=== PATIENT | male | born 1960 ===

== ENCOUNTER → 2019-12-11 | Outpatient (CLI) | payer OTHER | LOC: ZCOL.LAB 16:31 | DX: Z20.828 Contact with and (suspected) exposure to other viral communicable diseases (principal) ==

== ENCOUNTER 2020-12-16 20:58 | Inpatient (IN) | payer OTHER ==
[~2020-12-16] VITALS: Ht 175.3 cm; Wt 104.5 kg
[2020-12-16 21:36] LABS: HEMATOCRIT 43.5 % (42.0-52.0); HEMOGLOBIN 14.8 g/dl (13.5-18.0); MEAN CELL VOLUME 93 fl (80.0-100.0); MEAN CORPUSCULAR HEMOGLOBIN 32 pg (27.0-31.0); MEAN CORPUSCULAR HGB CONC 34 g/dl (33.0-37.0); MEAN PLATELET VOLUME 10.5 fl (7.4-10.4); PLATELET COUNT 294 K/mm3 (130-400); RED BLOOD COUNT 4.66 M/mm3 (4.20-5.60); REDCELL DISTRIBUTION WIDTH-CV 12.7 % (11.5-14.5)
[2020-12-16 21:45] LABS: ARTERIAL BLD GAS O2 SATURATION 89.1 % (92-100); ARTERIAL BLD GAS TCO2 CT 21.9; ARTERIAL BLOOD GAS BASE EXCESS -0.6 (-2-2); ARTERIAL BLOOD GAS PCO2 27.9 mmHg (35-45); ARTERIAL BLOOD GAS PO2 54.3 mmHg (80-100)
[2020-12-16 21:47] LABS: ALANINE AMINOTRANSFERASE 100 U/L (4-49); ALBUMIN 4.2 gm/dL (3.5-5.0); ALKALINE PHOSPHATASE 70 U/L (50-136); ANION GAP 11 mmol/L (7-16); AST,SGOT 128 U/L (15-37); BILIRUBIN,TOTAL 1.4 mg/dL (0.0-1.0); BLOOD UREA NITROGEN 24 mg/dL (9-20); CALCIUM 8.9 mg/dL (8.4-10.2); CARBON DIOXIDE 25 mmol/L (22-30); CHLORIDE 96 mmol/L (98-107); CREATININE, serum 1.08 (0.66-1.25); GLUCOSE 136 mg/dL (74-106); LIPASE 82 U/L (23-300); POTASSIUM 4.1 mmol/L (3.4-5.0); SODIUM 132 mmol/L (137-145); TOTAL PROTEIN 8.3 gm/dL (6.4-8.2)
[2020-12-16 22:09] LABS: INR 1.4 (0.8-3.0); PROTHROMBIN TIME 15.3 SECONDS (9.7-12.8)
[2020-12-16 22:19] LABS: TROPONIN-I < 0.012 ng/mL (0.000-0.035)
[2020-12-16 22:30] LABS: C-REACTIVE PROTEIN 17.6 mg/dL (0.0-0.9)
[2020-12-16 22:34] LABS: BAND 7 % (0-10); BASOPHIL 1 % (0-2); LYMPHOCYTE 5 % (20.0-51.0); NEUTROPHILS 80 % (42.0-75.2); PLATELET ESTIMATE NORMAL (NORMAL)
[2020-12-17] VITALS (470 sets, daily range): BP systolic 123–152; BP diastolic 83–99; PULSE 74–90; TEMP 96.9–98.4; O2SAT 66–98
--- NOTE | 2020-12-17 00:50 | NUR ---
Received report from ED nurseConcepcion.
[2020-12-17] MEDS ORDERED: ZYLOPRIM 300MG300 MG PO (01:22)
--- NOTE | 2020-12-17 01:36 | NUR ---
Patient arrives to ICU room 3 via ED stretcher. Patient arrives on BiPap, receiving 22/18 on 100% FiO2, tolerating well with sats low 90s. He is able to ambulate with standby assistance to ICU bed, however, he becomes labored with the activity. Respirations are otherwise unlabored although tachypneic when laying quietly in bed resting. He is alert and oriented. All initial vitals within normal limits. He arrives with two 20G peripheral IVs, one in the right AC, the other in the left hand. Both are saline locked. Patient voids in urinal, yielding 300mL of sharon, cloudy urine. A sample is sent to lab per hospitalist, Yamila, who is at bedside at time of patient's arrival. No skin issues noted. Patient is provided with call light, bed in lowest position. All alarms on. No further needs noted.
--- NOTE | 2020-12-17 01:45 | NUR ---
Patient's belongings include street clothes, a cell phone and glass engraver; a set of keys, and a wallet with $64 arevalo. Patient denies having glasses, hearing aids, dentures, or removable jewelry. He refuses use of hospital safe when offered. Belongings placed at bedside or in patient closet per his request.
[2020-12-17 02:26] LABS: COLLECTION METHOD CLEAN CATCH
[2020-12-17 02:37] LABS: MUCOUS Present /lpf; PH 5 (5-8); SQUAMOUS EPITHELIAL 0-2 /hpf; URINE APPEARANCE Hazy; URINE BACTERIA Rare /hpf; URINE BILIRUBIN Negative (NEGATIVE); URINE BLOOD 1+ (NEGATIVE); URINE COLOR Amber; URINE GLUCOSE Negative (NEGATIVE); URINE KETONE Negative (NEGATIVE); URINE LEUKOCYTE ESTERASE Negative (NEGATIVE); URINE NITRATE Negative (NEGATIVE); URINE PROTEIN(semi-quant) 1+ (NEGATIVE); URINE UROBILINOGEN >=4.0 mg/dL (NEGATIVE)
[2020-12-17 06:22] LABS: ARTERIAL BLD GAS O2 SATURATION 88.8 % (92-100); ARTERIAL BLD GAS TCO2 CT 23.4; ARTERIAL BLOOD GAS HCO3 22.4 meq/L (22-26); ARTERIAL BLOOD GAS PCO2 33.6 mmHg (35-45); ARTERIAL BLOOD GAS PO2 56.1 mmHg (80-100); ARTERIAL BLOOD GAS pH 7.44 (7.35-7.45)
--- NOTE | 2020-12-17 07:34 | NUR ---
Report given to EMELY Urban.
[2020-12-17 07:54] LABS: HEMATOCRIT 40.9 % (42.0-52.0); HEMOGLOBIN 13.7 g/dl (13.5-18.0); MEAN CELL VOLUME 93 fl (80.0-100.0); MEAN CORPUSCULAR HEMOGLOBIN 31 pg (27.0-31.0); MEAN CORPUSCULAR HGB CONC 34 g/dl (33.0-37.0); MEAN PLATELET VOLUME 10.2 fl (7.4-10.4); PLATELET COUNT 249 K/mm3 (130-400); RED BLOOD COUNT 4.39 M/mm3 (4.20-5.60); REDCELL DISTRIBUTION WIDTH-CV 12.6 % (11.5-14.5)
[2020-12-17 08:06] LABS: ALBUMIN 3.7 gm/dL (3.5-5.0); BILIRUBIN UNCONJUGATED 0.4 mg/dL (0.0-1.1); BILIRUBIN,DIRECT 0.4 mg/dL (0.0-0.4); BILIRUBIN,TOTAL 0.8 mg/dL (0.0-1.0); CALCIUM 8.4 mg/dL (8.4-10.2); CREATININE, serum 0.83 (0.66-1.25); POTASSIUM 4.1 mmol/L (3.4-5.0); TOTAL PROTEIN 7.6 gm/dL (6.4-8.2)
[2020-12-17 08:17] LABS: MAGNESIUM 2.4 mg/dL (1.6-2.3)
[2020-12-17 08:54] LABS: BAND 4 % (0-10); LYMPHOCYTE 6 % (20.0-51.0); MYELOCYTE 2 % (0-0); NEUTROPHILS 85 % (42.0-75.2); PLATELET ESTIMATE NORMAL (NORMAL)
--- NOTE | 2020-12-17 13:31 | NUR ---
DPOE filled out with patient, copy to patient and on chart. Patient designated his son Basim Overton #[phone]
--- NOTE | 2020-12-17 19:13 | NUR ---
PT report given to EMELY Smith.
--- NOTE | 2020-12-17 19:15 | NUR ---
Received report from EMELY Urban.
--- NOTE | 2020-12-17 21:45 | NUR ---
Patient resting quietly in bed. Continues to wear BiPap at 22/18 receiving 100% FiO2, tolerating well. Patient is tachypneic although he is unlabored while wearing BiPap mask. If mask removed, however, patient quickly becomes short of breath and distressed, desatting to 70s. Patient recovers well once mask is replaced. Patient experiences severe coughing episode while this RN at beside. Patient's saturation high 70s to low 80s; patient states it is difficult for him to catch his breath. Again, patient recovers well once coughing subsides. Saturations low 90s. All other vitals within normal limits. Patient denies any pain or discomfort. Yamila hospitalist, notified.
[2020-12-18] VITALS (554 sets, daily range): BP systolic 107–140; BP diastolic 70–91; PULSE 72–93; TEMP 96.6–99.2; O2SAT 69–100
--- NOTE | 2020-12-18 00:23 | NUR ---
While this RN assisting other patients, patient was intubated by Minor Gonzalez CRNA, with assistance of Guillermina, sugar house supervisor, and RTs, Eladia. Patient tolerated intubation well. Currently receiving fentanyl and propofol for sedation. An 18Fr OG placed, as well as a 16Fr aguilera catheter. Yamila hospitalist, at bedside.
--- NOTE | 2020-12-18 01:10 | NUR ---
PANFILO Driscoll in to speak with patient at 0000 as patient's SaO2 is trending down. Patient consents to intubation. PANFILO Driscoll also calls patient's son to give update on patient status. AGUILA Gaxiola at bedside with RT Chapito and RT Petros setting up ventilator. This RN at bedside. RSI meds administered and ETT placed without difficulty by AGUILA Gaxiola. Chest xray confirms ETT and OG.
[2020-12-18 04:18] LABS: ARTERIAL BLD GAS O2 SATURATION 97.2 % (92-100); ARTERIAL BLOOD GAS BASE EXCESS -1.7 (-2-2); ARTERIAL BLOOD GAS HCO3 22.8 meq/L (22-26); ARTERIAL BLOOD GAS PCO2 38.5 mmHg (35-45); ARTERIAL BLOOD GAS PO2 101.2 mmHg (80-100); ARTERIAL BLOOD GAS pH 7.39 (7.35-7.45)
[2020-12-18 05:16] LABS: HEMATOCRIT 39.8 % (42.0-52.0); HEMOGLOBIN 13.6 g/dl (13.5-18.0); MEAN CELL VOLUME 93 fl (80.0-100.0); MEAN CORPUSCULAR HEMOGLOBIN 32 pg (27.0-31.0); MEAN CORPUSCULAR HGB CONC 34 g/dl (33.0-37.0); MEAN PLATELET VOLUME 10.9 fl (7.4-10.4); PLATELET COUNT 272 K/mm3 (130-400); REDCELL DISTRIBUTION WIDTH-CV 12.8 % (11.5-14.5)
[2020-12-18 05:26] LABS: CALCIUM 8.7 mg/dL (8.4-10.2); CREATININE, serum 0.84 (0.66-1.25); MAGNESIUM 2.5 mg/dL (1.6-2.3); POTASSIUM 3.9 mmol/L (3.4-5.0)
[2020-12-18 05:50] LABS: COLLECTION METHOD CATHETER
[2020-12-18 05:59] LABS: MUCOUS Present /lpf; PH 5 (5-8); SQUAMOUS EPITHELIAL 0-2 /hpf; URINE APPEARANCE Hazy; URINE BACTERIA None Seen /hpf; URINE BILIRUBIN Negative (NEGATIVE); URINE BLOOD Negative (NEGATIVE); URINE COLOR Amber; URINE GLUCOSE Negative (NEGATIVE); URINE KETONE Negative (NEGATIVE); URINE LEUKOCYTE ESTERASE Negative (NEGATIVE); URINE NITRATE Negative (NEGATIVE); URINE PROTEIN(semi-quant) 1+ (NEGATIVE); URINE UROBILINOGEN >=4.0 mg/dL (NEGATIVE)
[2020-12-18 06:09] LABS: BAND 18 % (0-10); LYMPHOCYTE 3 % (20.0-51.0); METAMYELOCYTE 1 % (0-0); NEUTROPHILS 76 % (42.0-75.2); PLATELET ESTIMATE NORMAL (NORMAL); POIKILOCYTOSIS 1+
--- NOTE | 2020-12-18 16:05 | NUR ---
pt IS PRONE, ON PROPOFOL AND FENTANYL, ATTEMPTING TO GET OUT OF BED AND PULL ET TUBE OUT. Dr. Tran outside of room gives orders vecuronium push, vecuronium drip, versed drip to start at 3. Orders recieved for train of four. With help of three RNs and RT. PT is safely repositioned in bed. ET tube placement confirmed along with OG tube placement.
--- NOTE | 2020-12-18 18:29 | NUR ---
Vecuronium drip started at 1623 with train of four per Dr. Tran. PT 08/18 with 10.8 milliamps. Will check as ordered q74
--- NOTE | 2020-12-18 19:14 | NUR ---
Report given to EMELY Estrada.
[2020-12-19] VITALS (662 sets, daily range): BP systolic 99–139; BP diastolic 70–93; PULSE 65–83; TEMP 96.9–98.7; O2SAT 88–100
--- NOTE | 2020-12-19 03:07 | NUR ---
0000 TOF AT 0/4, DECREASED VECRONIUM TO 0.6
--- NOTE | 2020-12-19 05:38 | NUR ---
decreased vecuronium to 0.4 at this time will monitor for appropriate response
--- NOTE | 2020-12-19 05:41 | NUR ---
PATIENT IS CURRENTLY ON PARALYTIC AND SEDATION UNABLE TO PREFORM SEDATION VACATION WHILE PARALYTIC CONTINUES
[2020-12-19 05:47] LABS: ARTERIAL BLD GAS O2 SATURATION 99.6 % (92-100); ARTERIAL BLD GAS TCO2 CT 23.1; ARTERIAL BLOOD GAS BASE EXCESS -2.7 (-2-2); ARTERIAL BLOOD GAS HCO3 21.9 meq/L (22-26); ARTERIAL BLOOD GAS pH 7.38 (7.35-7.45)
[2020-12-19 05:48] LABS: ARTERIAL BLOOD GAS PO2 326.9 mmHg (80-100)
--- NOTE | 2020-12-19 07:30 | NUR ---
REPORT RECEIVED FROM EMELY AREVALO
--- NOTE | 2020-12-19 08:00 | NUR ---
PATIENT TURNED SUPINE WITH HELP OF INFANT AND TODDLER TEACHER AND PHYSICAL THERAPY. HE TOLERATES WELL.
[2020-12-19 09:17] LABS: HEMATOCRIT 39.3 % (42.0-52.0); HEMOGLOBIN 13.1 g/dl (13.5-18.0); MEAN CELL VOLUME 94 fl (80.0-100.0); MEAN CORPUSCULAR HEMOGLOBIN 31 pg (27.0-31.0); MEAN CORPUSCULAR HGB CONC 33 g/dl (33.0-37.0); MEAN PLATELET VOLUME 10.5 fl (7.4-10.4); PLATELET COUNT 262 K/mm3 (130-400); RED BLOOD COUNT 4.19 M/mm3 (4.20-5.60); REDCELL DISTRIBUTION WIDTH-CV 12.7 % (11.5-14.5)
[2020-12-19 09:28] LABS: CALCIUM 8.6 mg/dL (8.4-10.2); CREATININE, serum 0.88 (0.66-1.25); PHOSPHOROUS 4.2 mg/dL (2.5-4.5); POTASSIUM 3.9 mmol/L (3.4-5.0)
--- NOTE | 2020-12-19 09:30 | NUR ---
UPDATE GIVEN TO OUMAR PRECIADO.
[2020-12-19 09:52] LABS: LYMPHOCYTE 8 % (20.0-51.0); NEUTROPHILS 90 % (42.0-75.2)
[2020-12-19 10:02] LABS: PLATELET ESTIMATE NORMAL (NORMAL)
--- NOTE | 2020-12-19 15:10 | NUR ---
PATIENT PLACED IN PRONE POSITION. HE TOLERATED IT WELL.
--- NOTE | 2020-12-19 18:00 | NUR ---
PATIENT RESTARTED ON VEC GTT D/T INCREASED FREQUENCY AND DECREASED VOLUMES.
--- NOTE | 2020-12-19 19:20 | NUR ---
REPORT GIVEN TO EMELY AREVALO
--- NOTE | 2020-12-19 22:17 | NUR ---
VENT CHECK FOR 2099, NOT 1900.
[2020-12-20] VITALS (626 sets, daily range): BP systolic 103–137; BP diastolic 71–81; PULSE 69–83; TEMP 97.7–98.2; O2SAT 89–100
[2020-12-20 05:58] LABS: ARTERIAL BLD GAS O2 SATURATION 98.6 % (92-100); ARTERIAL BLD GAS TCO2 CT 27.2; ARTERIAL BLOOD GAS BASE EXCESS 0.3 (-2-2); ARTERIAL BLOOD GAS HCO3 25.8 meq/L (22-26); ARTERIAL BLOOD GAS PCO2 44.8 mmHg (35-45); ARTERIAL BLOOD GAS pH 7.38 (7.35-7.45)
[2020-12-20 06:00] LABS: ARTERIAL BLOOD GAS PO2 133.4 mmHg (80-100)
[2020-12-20 06:21] LABS: HEMATOCRIT 40.6 % (42.0-52.0); HEMOGLOBIN 13.6 g/dl (13.5-18.0); MEAN CELL VOLUME 95 fl (80.0-100.0); MEAN CORPUSCULAR HEMOGLOBIN 32 pg (27.0-31.0); MEAN CORPUSCULAR HGB CONC 34 g/dl (33.0-37.0); MEAN PLATELET VOLUME 10.8 fl (7.4-10.4); PLATELET COUNT 281 K/mm3 (130-400); RED BLOOD COUNT 4.27 M/mm3 (4.20-5.60); REDCELL DISTRIBUTION WIDTH-CV 13.1 % (11.5-14.5)
[2020-12-20 06:33] LABS: CALCIUM 8.4 mg/dL (8.4-10.2); CREATININE, serum 0.72 (0.66-1.25); POTASSIUM 4.4 mmol/L (3.4-5.0)
[2020-12-20 07:22] LABS: BAND 6 % (0-10); LYMPHOCYTE 4 % (20.0-51.0); NEUTROPHILS 89 % (42.0-75.2); PLATELET ESTIMATE NORMAL (NORMAL)
--- NOTE | 2020-12-20 13:43 | NUR ---
Call made to Basim Overton, patient's son and [facility]. Basim is unsure that the patient has a PCP, states he usually goes to [facility]. Patient's pharmacy preference is [facility]. Patient does not use any home medical equipement or assistive devices. Patient has three children; Basim who lives in [place], Angie Overton who lives in , and Ty Tian who also lives in [place]. Patient lives in [place] by himself. Ex-, Joyce Overton, is also local and Basim states they have a good relationship and she would help check-in on the patient as well as himself and Ty.
--- NOTE | 2020-12-20 16:04 | NUR ---
pt SEDATION DECREASED FOR SEDATION VACATION AT 1500 PRIOR TO PRONING. PT opened eyes to his name and squeezed with right hand. PT began to reach for tube and fighting ventilation. Sedation increases per orders prior to prone position.
--- NOTE | 2020-12-20 19:08 | NUR ---
Report given to EMELY Estrada.
[2020-12-21] VITALS (900 sets, daily range): BP systolic 104–123; BP diastolic 66–774; PULSE 67–84; TEMP 92.3–98.5; O2SAT 89–99
[2020-12-21 05:01] LABS: ARTERIAL BLD GAS O2 SATURATION 99.1 % (92-100); ARTERIAL BLD GAS TCO2 CT 28.7; ARTERIAL BLOOD GAS BASE EXCESS 2.3 (-2-2); ARTERIAL BLOOD GAS HCO3 27.4 meq/L (22-26); ARTERIAL BLOOD GAS PCO2 44.2 mmHg (35-45); ARTERIAL BLOOD GAS pH 7.41 (7.35-7.45)
[2020-12-21 05:12] LABS: HEMATOCRIT 41.2 % (42.0-52.0); HEMOGLOBIN 13.5 g/dl (13.5-18.0); MEAN CELL VOLUME 97 fl (80.0-100.0); MEAN CORPUSCULAR HEMOGLOBIN 32 pg (27.0-31.0); MEAN CORPUSCULAR HGB CONC 33 g/dl (33.0-37.0); MEAN PLATELET VOLUME 10.6 fl (7.4-10.4); PLATELET COUNT 268 K/mm3 (130-400); RED BLOOD COUNT 4.26 M/mm3 (4.20-5.60); REDCELL DISTRIBUTION WIDTH-CV 13.1 % (11.5-14.5)
[2020-12-21 05:24] LABS: CALCIUM 8.4 mg/dL (8.4-10.2); CREATININE, serum 0.82 (0.66-1.25); POTASSIUM 4.8 mmol/L (3.4-5.0)
[2020-12-21 06:22] LABS: BAND 8 % (0-10); LYMPHOCYTE 11 % (20.0-51.0); NEUTROPHILS 79 % (42.0-75.2)
[2020-12-21 06:23] LABS: PLATELET ESTIMATE NORMAL (NORMAL)
--- NOTE | 2020-12-21 07:00 | NUR ---
RECEIVED REPORT FROM EMELY AREVALO. PT RESTING EASILY IN PRONE POSTION. VENT SETTINGS: RR 24, PEEP 20, FIO2 60%, TV 500. FC PATENT AND DRAINING TO GRAVITY. VSS. OGT AT 60 CM WITH TF INFUSING AT 40 ML/HR PER ORDERS. SEE GTT FLOWSHEET. METAL INSPECTOR IN PLACE.
[2020-12-21 07:42] LABS: ARTERIAL BLOOD GAS PO2 159.9 mmHg (80-100)
--- NOTE | 2020-12-21 10:00 | NUR ---
DR OH STATED HE HAD TURNED DOWN PT'S FIO2 TO 50% AND PEEP TO 18. PROVIDER STATES TO KEEP POX GREATER THAN 93%. PT'S POX IS 91%. PROVIDER STATES INCREASE FIO2 BACK TO 60% AND IF THAT DOESNT WORK THEN PUT PEEP BACK TO 20. FIO2 CHANGED BACK TO 60% AT THIS TIME. POX INCREASES TO 95% AFTER FIVE MINUTES.
--- NOTE | 2020-12-21 12:00 | NUR ---
PER DR OH, PICC LINE IS COILED BUT HE THINKS IF LINE IS POWER FLUSHED IT COULD HELP IT FLOAT BACK DOWN. PROCEDURE PERFORMED. WILL REASSESS TOMORROW'S XRAY FOR LINE PLACEMENT.
--- NOTE | 2020-12-21 17:52 | NUR ---
RECHECK RESIDUAL 300ML. WILL RECHECK IN 2 HOURS. TF ON HOLD STILL.
[2020-12-22] VITALS (914 sets, daily range): BP systolic 106–131; BP diastolic 77–113; PULSE 74–110; TEMP 98.1–99.3; O2SAT 88–99
[2020-12-22 05:06] LABS: ARTERIAL BLD GAS O2 SATURATION 97.2 % (92-100); ARTERIAL BLD GAS TCO2 CT 27.4; ARTERIAL BLOOD GAS BASE EXCESS 1.1 (-2-2); ARTERIAL BLOOD GAS HCO3 26.1 meq/L (22-26); ARTERIAL BLOOD GAS PCO2 42.6 mmHg (35-45); ARTERIAL BLOOD GAS PO2 94.9 mmHg (80-100); ARTERIAL BLOOD GAS pH 7.41 (7.35-7.45)
[2020-12-22 06:00] LABS: HEMATOCRIT 42.8 % (42.0-52.0); HEMOGLOBIN 13.7 g/dl (13.5-18.0); MEAN CELL VOLUME 98 fl (80.0-100.0); MEAN CORPUSCULAR HEMOGLOBIN 31 pg (27.0-31.0); MEAN CORPUSCULAR HGB CONC 32 g/dl (33.0-37.0); MEAN PLATELET VOLUME 10.6 fl (7.4-10.4); PLATELET COUNT 240 K/mm3 (130-400); RED BLOOD COUNT 4.39 M/mm3 (4.20-5.60); REDCELL DISTRIBUTION WIDTH-CV 13.1 % (11.5-14.5)
[2020-12-22 06:11] LABS: CALCIUM 8.5 mg/dL (8.4-10.2); CREATININE, serum 0.78 (0.66-1.25); POTASSIUM 4.7 mmol/L (3.4-5.0)
[2020-12-22 06:19] LABS: MAGNESIUM 2.6 mg/dL (1.6-2.3)
[2020-12-22 06:42] LABS: BAND 3 % (0-10); EOSINOPHIL 1 % (0-4); LYMPHOCYTE 10 % (20.0-51.0); METAMYELOCYTE 2 % (0-0); NEUTROPHILS 79 % (42.0-75.2); PLATELET ESTIMATE NORMAL (NORMAL)
--- NOTE | 2020-12-22 07:00 | NUR ---
RECEIVED REPORT FROM EMELY AREVALO. PT TOLERATING SAME VENT SETTINGS. VSS. ASSOCIATE RELATIONS SPECIALIST IN PLACE.TF INFUSING IN OGT AT 40ML/HR. FC PATENT AND DRAINING TO GRAVITY. RECTAL TUBE IN PLACE. SEE GTT FLOWSHEET.
[2020-12-23] VITALS (582 sets, daily range): BP systolic 96–139; BP diastolic 60–94; PULSE 72–115; TEMP 98.5–100.2; O2SAT 83–98
--- NOTE | 2020-12-23 00:58 | NUR ---
NOTED TUBE FEEDING RESIDUAL CHECK AT APPROXIMATELY 1999 WAS 325 PER PROTOCOL HELD AT THIS TIME RECHECK AT 0000 (DUE TO BEING IN ANOTHER PATIENT'S ROOM) RESIDUAL CHECK IS 450 NOTIFIED FRANK WITH [facility] TEAM AT THIS TIME
[2020-12-23 04:20] LABS: ARTERIAL BLD GAS O2 SATURATION 98.2 % (92-100); ARTERIAL BLD GAS TCO2 CT 28.2; ARTERIAL BLOOD GAS HCO3 26.9 meq/L (22-26); ARTERIAL BLOOD GAS PCO2 42.9 mmHg (35-45); ARTERIAL BLOOD GAS pH 7.42 (7.35-7.45)
[2020-12-23 06:19] LABS: HEMATOCRIT 43.9 % (42.0-52.0); MEAN CELL VOLUME 100 fl (80.0-100.0); MEAN CORPUSCULAR HEMOGLOBIN 32 pg (27.0-31.0); MEAN CORPUSCULAR HGB CONC 32 g/dl (33.0-37.0); MEAN PLATELET VOLUME 10.9 fl (7.4-10.4); PLATELET COUNT 221 K/mm3 (130-400); REDCELL DISTRIBUTION WIDTH-CV 13.2 % (11.5-14.5)
[2020-12-23 06:33] LABS: MAGNESIUM 2.6 mg/dL (1.6-2.3); PHOSPHOROUS 4.5 mg/dL (2.5-4.5)
[2020-12-23 06:40] LABS: BAND 2 % (0-10); LYMPHOCYTE 21 % (20.0-51.0); METAMYELOCYTE 1 % (0-0); MYELOCYTE 2 % (0-0); NEUTROPHILS 70 % (42.0-75.2); PLATELET ESTIMATE NORMAL (NORMAL)
[2020-12-23 06:42] LABS: ALBUMIN 3.3 gm/dL (3.5-5.0); BILIRUBIN,TOTAL 0.5 mg/dL (0.0-1.0); CALCIUM 8.6 mg/dL (8.4-10.2); CREATININE, serum 0.77 (0.66-1.25); POTASSIUM 4.6 mmol/L (3.4-5.0); TOTAL PROTEIN 6.7 gm/dL (6.4-8.2)
[2020-12-23 07:41] LABS: PRE ALBUMIN 18.3 mg/dL (17.6-36.0)
--- NOTE | 2020-12-23 07:45 | NUR ---
BEDSIDE SHIFT REPORT RECEIVED FROM EMELY AREVALO. PATIENT IS CURRENTLY PRONE. SEE GTT TITRATION FLOWSHEET. ИРИНА PICC LINE STILL IN PLACE. MAYORGA AND FECAL MANAGEMENT SYSTEM STILL IN PLACE, PATENT AND DRAINING TO GRAVITY.
[2020-12-23 08:04] LABS: ARTERIAL BLOOD GAS pH 7.46 (7.35-7.45)
[2020-12-23 08:05] LABS: ARTERIAL BLD GAS O2 SATURATION 95.3 % (92-100); ARTERIAL BLOOD GAS BASE EXCESS -0.3 (-2-2); ARTERIAL BLOOD GAS HCO3 22.6 meq/L (22-26); ARTERIAL BLOOD GAS PCO2 32.2 mmHg (35-45); ARTERIAL BLOOD GAS PO2 71.2 mmHg (80-100)
--- NOTE | 2020-12-23 17:00 | NUR ---
PATIENT RECENTLY PRONED AND RESEDATED. WILL BE KEEPING SEDATION LEVEL IS.
[2020-12-24] VITALS (549 sets, daily range): BP systolic 91–125; BP diastolic 64–88; PULSE 69–122; TEMP 98–100.6; O2SAT 88–100
[2020-12-24 05:14] LABS: ARTERIAL BLD GAS O2 SATURATION 96.6 % (92-100); ARTERIAL BLD GAS TCO2 CT 30.2; ARTERIAL BLOOD GAS BASE EXCESS 3.8 (-2-2); ARTERIAL BLOOD GAS HCO3 28.8 meq/L (22-26); ARTERIAL BLOOD GAS PCO2 44.7 mmHg (35-45); ARTERIAL BLOOD GAS PO2 92.1 mmHg (80-100); ARTERIAL BLOOD GAS pH 7.43 (7.35-7.45)
[2020-12-24 06:47] LABS: HEMATOCRIT 43.4 % (42.0-52.0); HEMOGLOBIN 13.7 g/dl (13.5-18.0); MEAN CELL VOLUME 99 fl (80.0-100.0); MEAN CORPUSCULAR HEMOGLOBIN 31 pg (27.0-31.0); MEAN CORPUSCULAR HGB CONC 32 g/dl (33.0-37.0); MEAN PLATELET VOLUME 11.1 fl (7.4-10.4); PLATELET COUNT 180 K/mm3 (130-400); REDCELL DISTRIBUTION WIDTH-CV 13.2 % (11.5-14.5)
[2020-12-24 06:57] LABS: CALCIUM 8.3 mg/dL (8.4-10.2); CREATININE, serum 0.86 (0.66-1.25); POTASSIUM 4.4 mmol/L (3.4-5.0)
[2020-12-24 07:08] LABS: MAGNESIUM 2.4 mg/dL (1.6-2.3)
--- NOTE | 2020-12-24 07:18 | NUR ---
BEDSIDE SHIFT REPORT RECEIVED FROM EMELY AREVALO. PATIENT CURRENTLY PRONED. VSS. MAYORGA CATHETER AND FECAL MANAGEMENT SYSTEM STILL IN PLACE. ИРИНА PICC STILL IN PLACE. SEE GTT TITRATION FLOWSHEET.
[2020-12-24 07:40] LABS: BAND 3 % (0-10); EOSINOPHIL 1 % (0-4); LYMPHOCYTE 7 % (20.0-51.0); METAMYELOCYTE 5 % (0-0); NEUTROPHILS 81 % (42.0-75.2); PLATELET ESTIMATE NORMAL (NORMAL)
--- NOTE | 2020-12-24 17:00 | NUR ---
PATIENT DID NOT TOLERATE BEING PRONE AND BECAME AGITATED AND RESTLESS. NO SEDATION VACATION TODAY.
[2020-12-25] VITALS (623 sets, daily range): BP systolic 91–129; BP diastolic 63–83; PULSE 69–93; TEMP 98.6–100.1; O2SAT 90–100
[2020-12-25 05:17] LABS: ARTERIAL BLD GAS O2 SATURATION 95.2 % (92-100); ARTERIAL BLD GAS TCO2 CT 27.1; ARTERIAL BLOOD GAS PCO2 35.1 mmHg (35-45); ARTERIAL BLOOD GAS PO2 76.8 mmHg (80-100); ARTERIAL BLOOD GAS pH 7.49 (7.35-7.45)
[2020-12-25 05:28] LABS: HEMATOCRIT 41.4 % (42.0-52.0); MEAN CELL VOLUME 101 fl (80.0-100.0); MEAN CORPUSCULAR HEMOGLOBIN 32 pg (27.0-31.0); MEAN CORPUSCULAR HGB CONC 31 g/dl (33.0-37.0); PLATELET COUNT 142 K/mm3 (130-400); RED BLOOD COUNT 4.12 M/mm3 (4.20-5.60); REDCELL DISTRIBUTION WIDTH-CV 13.2 % (11.5-14.5)
[2020-12-25 05:42] LABS: CALCIUM 7.9 mg/dL (8.4-10.2); CREATININE, serum 0.79 (0.66-1.25); MAGNESIUM 2.4 mg/dL (1.6-2.3); POTASSIUM 4.3 mmol/L (3.4-5.0)
[2020-12-25 05:58] LABS: ANISOCYTOSIS 1+; HYPOCHROMIA 1+; LYMPHOCYTE 15 % (20.0-51.0); MYELOCYTE 1 % (0-0); NEUTROPHILS 82 % (42.0-75.2); PLATELET ESTIMATE NORMAL (NORMAL)
--- NOTE | 2020-12-25 07:00 | NUR ---
RECEIVED REPORT FROM EMELY HOWELL. PT RESTING EASILY IN PRONE POSITION. VENT SETTINGS: TV 500, RR 24, FIO2 50%, PEEP 16. FC PATENT AND DRAINING TO GRAVITY. SEE GTT FLOWSHEET. TERRA COTTA ROOFER IN PLACE. TF ON HOLD SINCE 399 PER REPORT.
--- NOTE | 2020-12-25 07:35 | NUR ---
NO SEDATION VACATION. PT BEGAN TO GET TACHYCARDIC WHEN DECREASING SEDATION THROUOUGHT SHIFT. FOLLOWED COMMANDS
--- NOTE | 2020-12-25 09:20 | NUR ---
DR OH AND DR KRISHNAMURTHY NOTIFIED OF PT'S RESIDUALS 350ML THIS AM AND TF HAS BEEN ON HOLD SINCE 0400 THIS AM PER REPORT. PER DR OH, START TF BACK AT 10 ML/HR. RECHECK NORMAL AND IF LESS THAN 250ML RESIDUAL, INCREASE PER ORDERS, IF STILL GREATER THAN 250ML KEEP AT 10ML/HR UNTIL LESS THAN 250ML RESIDUAL.
--- NOTE | 2020-12-25 09:20 | NUR ---
DR OH AT BEDSIDE. PLACED PRECEDEX ON STANDBY. PROVIDER STATES LEAVE ON STANDBY UNLESS AGITATED WHEN PRONED THEN CAN RESTART PRECEDEX GTT ACCORDINGLY.
--- NOTE | 2020-12-25 11:50 | NUR ---
RESIUDAL 150ML. TF INCREASED TO 20ML/HR.
[2020-12-25 14:14] LABS: ARTERIAL BLD GAS O2 SATURATION 93.3 % (92-100); ARTERIAL BLD GAS TCO2 CT 28.1; ARTERIAL BLOOD GAS BASE EXCESS 1.9 (-2-2); ARTERIAL BLOOD GAS HCO3 26.8 meq/L (22-26); ARTERIAL BLOOD GAS PCO2 42.6 mmHg (35-45); ARTERIAL BLOOD GAS PO2 68.1 mmHg (80-100); ARTERIAL BLOOD GAS pH 7.42 (7.35-7.45)
--- NOTE | 2020-12-25 16:25 | NUR ---
PT PRONED AND TURNING HEAD INTO PILLOW CAUSING ETT TO BE KINKED SETTING OFF VENT ALARMS. HR 117 WHEN IT HAS BEEN IN THE 70-80s. ALL OTHER VSS.
[2020-12-26] VITALS (778 sets, daily range): BP systolic 99–124; BP diastolic 66–86; PULSE 71–84; TEMP 98.3–98.9; O2SAT 88–100
[2020-12-26 03:47] LABS: HEMATOCRIT 42.7 % (42.0-52.0); HEMOGLOBIN 13.3 g/dl (13.5-18.0); MEAN CELL VOLUME 100 fl (80.0-100.0); MEAN CORPUSCULAR HEMOGLOBIN 31 pg (27.0-31.0); MEAN CORPUSCULAR HGB CONC 31 g/dl (33.0-37.0); MEAN PLATELET VOLUME 11.3 fl (7.4-10.4); PLATELET COUNT 121 K/mm3 (130-400); RED BLOOD COUNT 4.26 M/mm3 (4.20-5.60); REDCELL DISTRIBUTION WIDTH-CV 13.2 % (11.5-14.5)
[2020-12-26 03:56] LABS: ARTERIAL BLD GAS O2 SATURATION 97.4 % (92-100); ARTERIAL BLD GAS TCO2 CT 29.6; ARTERIAL BLOOD GAS BASE EXCESS 3.6 (-2-2); ARTERIAL BLOOD GAS HCO3 28.3 meq/L (22-26); ARTERIAL BLOOD GAS PCO2 42.8 mmHg (35-45); ARTERIAL BLOOD GAS PO2 98.4 mmHg (80-100); ARTERIAL BLOOD GAS pH 7.44 (7.35-7.45)
[2020-12-26 03:58] LABS: CALCIUM 8.5 mg/dL (8.4-10.2); CREATININE, serum 0.77 (0.66-1.25); MAGNESIUM 2.5 mg/dL (1.6-2.3); POTASSIUM 4.5 mmol/L (3.4-5.0)
[2020-12-26 04:24] LABS: BASOPHIL 1 % (0-2); EOSINOPHIL 1 % (0-4); LYMPHOCYTE 8 % (20.0-51.0); METAMYELOCYTE 1 % (0-0); NEUTROPHILS 84 % (42.0-75.2)
[2020-12-26 04:25] LABS: HYPOCHROMIA 2+; PLATELET ESTIMATE DECREASED (NORMAL)
--- NOTE | 2020-12-26 05:06 | NUR ---
SLOWLY TITRATED MEDICATIONS OVERNIGHT. PT TOLERATED DECREASE WELL. CAN BECOME SLIGHTLY TACHYCARDIC WITH TOO MUCH SEDATION VACATION BUT OVERALL WAS RESTFUL.
--- NOTE | 2020-12-26 07:20 | NUR ---
RECEIVED REPORT FROM EMELY HOWELL. PT PRONED. VSS. BIRD TENDER IN PLACE. TOLERATING VENT SETTINGS: TV 500, RR 24, PEEP 15, FIO2 45%. SEE GTT FLOWSHEET. FC PATENT AND DRAINING TO GRAVITY. RECTAL TUBE IN PLACE.
--- NOTE | 2020-12-26 07:29 | NUR ---
INCREASED TF FROM 20 ML/HR TO 25 ML/HR AT 1999. RESIDUALS ORIGINALLY 170. TUBE FEEDINGS HELD AFTER 0100 DUE TO RESIDUALS AT 300.
--- NOTE | 2020-12-26 09:00 | NUR ---
SO\POKE WITH DR ADRIANO MONTANO TF BEEN ON HOLD SINCE 0100 LAST NIGHT. PROVIDER STATES RESTART TF WHERE IT WAS AT, 25 ML/HR AND INCREASE DOSE OF REGLAN, SEE MAR.
--- NOTE | 2020-12-26 17:30 | NUR ---
RESIDUAL 110, TF INCREASED TO 35ML/HR.
[2020-12-27] VITALS (740 sets, daily range): BP systolic 101–151; BP diastolic 67–97; PULSE 55–98; TEMP 95.4–99.6; O2SAT 87–100
--- NOTE | 2020-12-27 00:21 | NUR ---
TUBE FEEDINGS HELD DUE TO RESIDUAL OF 350 ML. WILL CONTINUE TO ASSESS RESIDUALS AND RESTART IF ABLE.
[2020-12-27 04:26] LABS: BASO % 0.1 % (0.0-2.0); EOS % 0.2 % (0-4.0); GRAN # 8.9 (1.4-6.5); GRAN % 85.9 % (42.2-75.2); HEMATOCRIT 42.3 % (42.0-52.0); HEMOGLOBIN 13.4 g/dl (13.5-18.0); LYMPH # 0.9 (1.2-3.4); LYMPH % 8.7 % (20.0-51.0); MEAN CELL VOLUME 99 fl (80.0-100.0); MEAN CORPUSCULAR HEMOGLOBIN 31 pg (27.0-31.0); MEAN CORPUSCULAR HGB CONC 32 g/dl (33.0-37.0); MEAN PLATELET VOLUME 11.8 fl (7.4-10.4); MONO # 0.4 (0.1-0.6); PLATELET COUNT 118 K/mm3 (130-400); RED BLOOD COUNT 4.28 M/mm3 (4.20-5.60); REDCELL DISTRIBUTION WIDTH-CV 13.1 % (11.5-14.5)
[2020-12-27 04:33] LABS: CALCIUM 8.8 mg/dL (8.4-10.2); CREATININE, serum 0.71 (0.66-1.25); POTASSIUM 4.5 mmol/L (3.4-5.0)
--- NOTE | 2020-12-27 06:43 | NUR ---
DID NOT DO SEDATION VACATION DUE TO PATIENT BEING PRONED BUT DID ATTEMPT TO DECREASE PRECEDEX TO OBTAIN BETTER NEURO STATUS AND IN PREPARATION FOR TURINING SUPINE IN AM. PT OPENS EYES TO COMMAND BUT HAS NOT MOVED EXTREMETIES. COUGHS AND OVER BREATHES VENT WITH MINIMAL TO NO GAG.
[2020-12-27 06:44] LABS: ARTERIAL BLD GAS O2 SATURATION 96.9 % (92-100); ARTERIAL BLD GAS TCO2 CT 27.3; ARTERIAL BLOOD GAS BASE EXCESS 1.1 (-2-2); ARTERIAL BLOOD GAS PCO2 42.3 mmHg (35-45); ARTERIAL BLOOD GAS PO2 94.5 mmHg (80-100); ARTERIAL BLOOD GAS pH 7.41 (7.35-7.45)
--- NOTE | 2020-12-27 20:12 | NUR ---
REPORT GIVEN TO EMELY AREVALO
[2020-12-28] VITALS (647 sets, daily range): BP systolic 93–133; BP diastolic 62–89; PULSE 52–68; TEMP 96.5–98.1; O2SAT 92–100
[2020-12-28 06:01] LABS: BASO % 0.1 % (0.0-2.0); EOS % 0.1 % (0-4.0); GRAN # 9.4 (1.4-6.5); GRAN % 84.3 % (42.2-75.2); HEMATOCRIT 43.1 % (42.0-52.0); LYMPH # 1.1 (1.2-3.4); MEAN CELL VOLUME 97 fl (80.0-100.0); MEAN CORPUSCULAR HEMOGLOBIN 32 pg (27.0-31.0); MEAN CORPUSCULAR HGB CONC 33 g/dl (33.0-37.0); MEAN PLATELET VOLUME 12.2 fl (7.4-10.4); MONO # 0.5 (0.1-0.6); MONO % 4.7 % (1.7-9.3); PLATELET COUNT 104 K/mm3 (130-400); RED BLOOD COUNT 4.43 M/mm3 (4.20-5.60)
[2020-12-28 06:04] LABS: ARTERIAL BLD GAS O2 SATURATION 98.2 % (92-100); ARTERIAL BLD GAS TCO2 CT 26.4; ARTERIAL BLOOD GAS BASE EXCESS 0.1 (-2-2); ARTERIAL BLOOD GAS HCO3 25.1 meq/L (22-26); ARTERIAL BLOOD GAS PCO2 41.9 mmHg (35-45); ARTERIAL BLOOD GAS PO2 127.5 mmHg (80-100)
[2020-12-28 06:18] LABS: CALCIUM 8.8 mg/dL (8.4-10.2); CREATININE, serum 0.72 (0.66-1.25); MAGNESIUM 2.6 mg/dL (1.6-2.3); POTASSIUM 4.5 mmol/L (3.4-5.0)
[2020-12-29] VITALS (636 sets, daily range): BP systolic 101–141; BP diastolic 75–97; PULSE 54–87; TEMP 96.6–98.2; O2SAT 90–100
[2020-12-29 04:01] LABS: BASO % 0.1 % (0.0-2.0); GRAN # 9.1 (1.4-6.5); GRAN % 87.9 % (42.2-75.2); HEMATOCRIT 41.8 % (42.0-52.0); HEMOGLOBIN 13.6 g/dl (13.5-18.0); LYMPH # 0.7 (1.2-3.4); LYMPH % 6.8 % (20.0-51.0); MEAN CELL VOLUME 97 fl (80.0-100.0); MEAN CORPUSCULAR HEMOGLOBIN 32 pg (27.0-31.0); MEAN CORPUSCULAR HGB CONC 33 g/dl (33.0-37.0); MEAN PLATELET VOLUME 12.5 fl (7.4-10.4); MONO # 0.5 (0.1-0.6); MONO % 4.6 % (1.7-9.3); PLATELET COUNT 82 K/mm3 (130-400); RED BLOOD COUNT 4.31 M/mm3 (4.20-5.60); REDCELL DISTRIBUTION WIDTH-CV 12.7 % (11.5-14.5)
[2020-12-29 04:10] LABS: ALBUMIN 3.2 gm/dL (3.5-5.0); BILIRUBIN,TOTAL 0.9 mg/dL (0.0-1.0); CALCIUM 8.5 mg/dL (8.4-10.2); CREATININE, serum 0.89 (0.66-1.25); POTASSIUM 4.5 mmol/L (3.4-5.0); TOTAL PROTEIN 6.1 gm/dL (6.4-8.2)
[2020-12-29 05:56] LABS: ARTERIAL BLD GAS O2 SATURATION 97.2 % (92-100); ARTERIAL BLD GAS TCO2 CT 26.3; ARTERIAL BLOOD GAS BASE EXCESS 0.2 (-2-2); ARTERIAL BLOOD GAS HCO3 25.1 meq/L (22-26); ARTERIAL BLOOD GAS PCO2 41.3 mmHg (35-45); ARTERIAL BLOOD GAS PO2 99.2 mmHg (80-100)
--- NOTE | 2020-12-29 10:00 | NUR ---
MD Hunter notified of continued elevated residuals
--- NOTE | 2020-12-29 18:42 | NUR ---
MD Hunter notifed residual 125mL. states we will hold off for sure now on potential TPN - resume Tube Feeding at 10mL/hr if residual is less than 100, no water flushes
[2020-12-30] VITALS (618 sets, daily range): BP systolic 101–127; BP diastolic 64–76; PULSE 56–80; TEMP 97.1–98.3; O2SAT 92–100
--- NOTE | 2020-12-30 00:53 | NUR ---
2115 NOTED THAT PATIENT HAD 10ML OF RESIDUAL STARTED TUBE FEEDINGS PER ORDER AT 10ML/HR WILL CONTINUE TO MONITOR
[2020-12-30 04:43] LABS: BASO % 0.1 % (0.0-2.0); GRAN # 10.4 (1.4-6.5); GRAN % 89.5 % (42.2-75.2); HEMATOCRIT 39.3 % (42.0-52.0); LYMPH # 0.7 (1.2-3.4); LYMPH % 6.3 % (20.0-51.0); MEAN CELL VOLUME 96 fl (80.0-100.0); MEAN CORPUSCULAR HEMOGLOBIN 32 pg (27.0-31.0); MEAN CORPUSCULAR HGB CONC 33 g/dl (33.0-37.0); MEAN PLATELET VOLUME 12.7 fl (7.4-10.4); MONO # 0.4 (0.1-0.6); MONO % 3.5 % (1.7-9.3); PLATELET COUNT 99 K/mm3 (130-400); RED BLOOD COUNT 4.08 M/mm3 (4.20-5.60); REDCELL DISTRIBUTION WIDTH-CV 12.7 % (11.5-14.5)
[2020-12-30 04:56] LABS: ALBUMIN 2.9 gm/dL (3.5-5.0); BILIRUBIN,TOTAL 0.7 mg/dL (0.0-1.0); C-REACTIVE PROTEIN 0.7 mg/dL (0.0-0.9); CALCIUM 8.5 mg/dL (8.4-10.2); CREATININE, serum 0.81 (0.66-1.25); MAGNESIUM 2.5 mg/dL (1.6-2.3); POTASSIUM 4.3 mmol/L (3.4-5.0); TOTAL PROTEIN 5.7 gm/dL (6.4-8.2)
[2020-12-30 05:31] LABS: PRE ALBUMIN 48.2 mg/dL (17.6-36.0)
[2020-12-30 06:25] LABS: ARTERIAL BLD GAS O2 SATURATION 98.2 % (92-100); ARTERIAL BLOOD GAS BASE EXCESS -0.7 (-2-2); ARTERIAL BLOOD GAS HCO3 23.8 meq/L (22-26)
[2020-12-31] VITALS (710 sets, daily range): BP systolic 112–162; BP diastolic 70–87; PULSE 63–108; TEMP 98–99.8; O2SAT 88–99
[2020-12-31 05:07] LABS: ARTERIAL BLD GAS O2 SATURATION 96.3 % (92-100); ARTERIAL BLD GAS TCO2 CT 25.7; ARTERIAL BLOOD GAS BASE EXCESS 1.4 (-2-2); ARTERIAL BLOOD GAS HCO3 24.6 meq/L (22-26); ARTERIAL BLOOD GAS PCO2 34.5 mmHg (35-45); ARTERIAL BLOOD GAS PO2 85.4 mmHg (80-100); ARTERIAL BLOOD GAS pH 7.47 (7.35-7.45)
[2020-12-31 06:19] LABS: BASO % 0.1 % (0.0-2.0); EOS % 0.1 % (0-4.0); GRAN # 13.4 (1.4-6.5); GRAN % 87.9 % (42.2-75.2); HEMATOCRIT 40.6 % (42.0-52.0); HEMOGLOBIN 13.3 g/dl (13.5-18.0); LYMPH % 6.5 % (20.0-51.0); MEAN CELL VOLUME 98 fl (80.0-100.0); MEAN CORPUSCULAR HEMOGLOBIN 32 pg (27.0-31.0); MEAN CORPUSCULAR HGB CONC 33 g/dl (33.0-37.0); MEAN PLATELET VOLUME 12.4 fl (7.4-10.4); MONO # 0.7 (0.1-0.6); MONO % 4.7 % (1.7-9.3); PLATELET COUNT 102 K/mm3 (130-400); RED BLOOD COUNT 4.16 M/mm3 (4.20-5.60); REDCELL DISTRIBUTION WIDTH-CV 13.2 % (11.5-14.5)
[2020-12-31 06:31] LABS: ALBUMIN 2.9 gm/dL (3.5-5.0); BILIRUBIN,TOTAL 0.7 mg/dL (0.0-1.0); C-REACTIVE PROTEIN 0.6 mg/dL (0.0-0.9); CALCIUM 8.7 mg/dL (8.4-10.2); CREATININE, serum 0.7 (0.66-1.25); POTASSIUM 3.7 mmol/L (3.4-5.0); TOTAL PROTEIN 5.7 gm/dL (6.4-8.2)
--- NOTE | 2020-12-31 16:25 | NUR ---
Pt drowsy but following commands, weak hand grasps, moves all extremities, unable to lift head off bed, coughing and fighting ventilator for breif periods - ETT suctioning produced thick andrade colored sputum - after suctioning pt tolerated ventilator better.
[2021-01-01] VITALS (743 sets, daily range): BP systolic 128–151; BP diastolic 67–89; PULSE 63–115; TEMP 97.8–99.2; O2SAT 78–97
[2021-01-01 04:56] LABS: ARTERIAL BLD GAS O2 SATURATION 94.8 % (92-100); ARTERIAL BLD GAS TCO2 CT 24.7; ARTERIAL BLOOD GAS BASE EXCESS 1.2 (-2-2); ARTERIAL BLOOD GAS HCO3 23.7 meq/L (22-26); ARTERIAL BLOOD GAS PCO2 31.5 mmHg (35-45); ARTERIAL BLOOD GAS PO2 71.7 mmHg (80-100)
[2021-01-01 06:19] LABS: EOS % 0.1 % (0-4.0); GRAN # 11.2 (1.4-6.5); GRAN % 87.3 % (42.2-75.2); HEMATOCRIT 37.1 % (42.0-52.0); HEMOGLOBIN 12.2 g/dl (13.5-18.0); LYMPH % 7.4 % (20.0-51.0); MEAN CELL VOLUME 97 fl (80.0-100.0); MEAN CORPUSCULAR HEMOGLOBIN 32 pg (27.0-31.0); MEAN CORPUSCULAR HGB CONC 33 g/dl (33.0-37.0); MEAN PLATELET VOLUME 12.2 fl (7.4-10.4); MONO # 0.6 (0.1-0.6); MONO % 4.7 % (1.7-9.3); PLATELET COUNT 98 K/mm3 (130-400); RED BLOOD COUNT 3.84 M/mm3 (4.20-5.60); REDCELL DISTRIBUTION WIDTH-CV 13.2 % (11.5-14.5)
[2021-01-01 06:31] LABS: ALBUMIN 2.7 gm/dL (3.5-5.0); BILIRUBIN,TOTAL 0.7 mg/dL (0.0-1.0); C-REACTIVE PROTEIN 0.6 mg/dL (0.0-0.9); CALCIUM 8.4 mg/dL (8.4-10.2); CREATININE, serum 0.66 (0.66-1.25); POTASSIUM 3.8 mmol/L (3.4-5.0); TOTAL PROTEIN 5.2 gm/dL (6.4-8.2)
--- NOTE | 2021-01-01 07:00 | NUR ---
RECEIVED REPORT FROM EMELY AREVALO. PT RESTING EASILY ON CURRENT VENT SETTINGS: SPONTANEOUS, FIO2 45%, PEEP 5. FC PATENT AND DRAINING TO GRAVITY. FOOD CHECKERS AND CASHIERS SUPERVISOR IN PLACE. VSS. OGT WITH TF INFUSING AT 10 ML/HR. SEE GTT FLOWSHEET. PT AROUSES TO VERBAL STIMULI AND BECOME RESTLESS DOES NOT FOLLOW SIMPLE COMMANDS. PT ABLE TO CALM DOWN ONCE LEFT ALONE FOR A FEW MINUTES.
--- NOTE | 2021-01-01 10:00 | NUR ---
TF ON HOLD. DR KLINE AND RT AT BEDSIDE MAKING VENT CHANGES. PT OPENS EYES AND FOLLOWS SIMPLE COMMANDS. PT NODS HEAD IN UNERSTANDING OF WEANING TRIAL AND MAY EXTUBATE THIS AM. PT ENCOURAGED TO REMAIN CALM AND FOCUS ON BREATHING. VSS.
--- NOTE | 2021-01-01 10:26 | NUR ---
PT EXTUBATED BY RT AT THIS TIME. OGT PULLED OUT AND SCHOOL VOCATIONAL EDUCATOR OFF. PT PLACED ON 8L OM. VSS. POX >90%. WILL MONITOR CLOSELY.
--- NOTE | 2021-01-01 12:45 | NUR ---
NURSING BEDSIDE SWALLOW PERFORMED. PT ABLE TO STATE BIRTHDAY AND FOLLOW SIMPLE COMMANDS BUT VOICE IS STILL A WHISPER. PT ABLE TO EAT ICE CHIP WITHOUT ANY ISSUES. HOWEVER ONCE TRYING TO DRINK FROM STRAW, PT BLEW INTO STRAW INSTEAD. TRIED TO TIP CUP INTO MOUTH FOR WATER AND WAS NOT ABLE TO CLOSE IT MOUTH AROUND IT AND IT ALL SPILLED OUT OF HIS MOUTH. SAME THING HAPPENED WITH THE APPLESAUCE. SPOKE TO SPEECH THERAPY, THEIR PLAN IS TO ACCESS PT TOMORROW AM.
[2021-01-02] VITALS (135 sets, daily range): BP systolic 124–163; BP diastolic 81–104; PULSE 84–119; TEMP 98.1–99.2; O2SAT 74–98
[2021-01-02 04:27] LABS: ARTERIAL BLD GAS O2 SATURATION 90.6 % (92-100); ARTERIAL BLD GAS TCO2 CT 26.3; ARTERIAL BLOOD GAS BASE EXCESS 3.7 (-2-2); ARTERIAL BLOOD GAS HCO3 25.3 meq/L (22-26); ARTERIAL BLOOD GAS PCO2 31.3 mmHg (35-45); ARTERIAL BLOOD GAS PO2 54.7 mmHg (80-100); ARTERIAL BLOOD GAS pH 7.53 (7.35-7.45)
[2021-01-02 04:37] LABS: BASO % 0.1 % (0.0-2.0); EOS # 0.2 (0.0-0.7); GRAN % 83.1 % (42.2-75.2); HEMATOCRIT 42.8 % (42.0-52.0); LYMPH # 1.6 (1.2-3.4); LYMPH % 10.8 % (20.0-51.0); MEAN CELL VOLUME 95 fl (80.0-100.0); MEAN CORPUSCULAR HEMOGLOBIN 31 pg (27.0-31.0); MEAN CORPUSCULAR HGB CONC 33 g/dl (33.0-37.0); MEAN PLATELET VOLUME 11.8 fl (7.4-10.4); MONO # 0.7 (0.1-0.6); MONO % 4.6 % (1.7-9.3); PLATELET COUNT 127 K/mm3 (130-400); RED BLOOD COUNT 4.53 M/mm3 (4.20-5.60); REDCELL DISTRIBUTION WIDTH-CV 13.2 % (11.5-14.5)
[2021-01-02 04:39] LABS: HEMOGLOBIN 14.2 g/dl (13.5-18.0)
[2021-01-02 04:53] LABS: ALBUMIN 3.1 gm/dL (3.5-5.0); C-REACTIVE PROTEIN 0.6 mg/dL (0.0-0.9); CALCIUM 8.7 mg/dL (8.4-10.2); CREATININE, serum 0.62 (0.66-1.25); POTASSIUM 3.6 mmol/L (3.4-5.0); TOTAL PROTEIN 5.8 gm/dL (6.4-8.2)
--- NOTE | 2021-01-02 07:00 | NUR ---
RECEIVED REPORT FROM EMELY AREVALO. PT RESTING IN BED ON 7L OM. VSS. CALL LIGHT WITHIN REACH. BEDALARM IN PLACE. FC PATENT AND DRAINING TO GRAVITY. SEE GTT FLOWSHEET.
--- NOTE | 2021-01-02 11:30 | NUR ---
sawmill production worker contacted patient's son, Basim, and provided information on [facility] and that a referral was made. Basim verbalizes understanding of the above information. Worker contacted Storm at [facility] and provided referral with faxed clinical information.
[2021-01-02 16:09] LABS: ARTERIAL BLD GAS O2 SATURATION 95.8 % (92-100); ARTERIAL BLD GAS TCO2 CT 23.4; ARTERIAL BLOOD GAS BASE EXCESS 1.2 (-2-2); ARTERIAL BLOOD GAS HCO3 22.5 meq/L (22-26); ARTERIAL BLOOD GAS PCO2 28.1 mmHg (35-45); ARTERIAL BLOOD GAS PO2 75.1 mmHg (80-100); ARTERIAL BLOOD GAS pH 7.52 (7.35-7.45)
--- NOTE | 2021-01-02 20:31 | NUR ---
PATIENT ASLEEP UPON ENTERING ROOM AWAKENS, CONFUSED, AND MEMORY RECALL IMPROVES THE LONGER AWAKE,BACK TO SLEEP AFTER ASSESSMENT QUESTIONS COMPLETE, DRINKS SIPS OF ICE WATER EASILY. STATES "I'M JUST TO TIRED TO EAT"
[2021-01-03] VITALS: BP 138/83; PULSE 112; TEMP 98.9
[2021-01-03 03:26] LABS: ARTERIAL BLD GAS O2 SATURATION 89.5 % (92-100); ARTERIAL BLD GAS TCO2 CT 20.7; ARTERIAL BLOOD GAS BASE EXCESS -0.3 (-2-2); ARTERIAL BLOOD GAS PO2 52.4 mmHg (80-100); ARTERIAL BLOOD GAS pH 7.55 (7.35-7.45)
[2021-01-03 03:27] LABS: ARTERIAL BLOOD GAS PCO2 23.5 mmHg (35-45)
[2021-01-03 04:00] VITALS: BP 142/90; PULSE 114; TEMP 99.3
[2021-01-03 05:55] LABS: BASO % 0.1 % (0.0-2.0); EOS # 0.2 (0.0-0.7); EOS % 1.4 % (0-4.0); GRAN # 13.4 (1.4-6.5); GRAN % 83.3 % (42.2-75.2); HEMATOCRIT 41.4 % (42.0-52.0); HEMOGLOBIN 14.2 g/dl (13.5-18.0); LYMPH # 1.6 (1.2-3.4); LYMPH % 9.8 % (20.0-51.0); MEAN CELL VOLUME 93 fl (80.0-100.0); MEAN CORPUSCULAR HEMOGLOBIN 32 pg (27.0-31.0); MEAN CORPUSCULAR HGB CONC 34 g/dl (33.0-37.0); MEAN PLATELET VOLUME 11.4 fl (7.4-10.4); MONO # 0.8 (0.1-0.6); PLATELET COUNT 135 K/mm3 (130-400); RED BLOOD COUNT 4.47 M/mm3 (4.20-5.60); REDCELL DISTRIBUTION WIDTH-CV 13.6 % (11.5-14.5)
[2021-01-03 06:05] LABS: ALBUMIN 3.1 gm/dL (3.5-5.0); BILIRUBIN,TOTAL 1.4 mg/dL (0.0-1.0); CALCIUM 8.3 mg/dL (8.4-10.2); CREATININE, serum 0.6 (0.66-1.25); POTASSIUM 3.7 mmol/L (3.4-5.0); TOTAL PROTEIN 5.9 gm/dL (6.4-8.2)
--- NOTE | 2021-01-03 07:00 | NUR ---
RECEIVED REPORT FROM EMELY FERGUSON. PT RESTING IN BED WATCHING TV. FC PATENT AND DRAINING TO GRAVITY. VSS. CALL LIGHT WITHIN REACH.
[2021-01-03 08:00] VITALS: BP 152/79; PULSE 103; TEMP 99.5
[2021-01-03 12:00] VITALS: BP 152/55; PULSE 103; TEMP 99
[2021-01-03 16:00] VITALS: BP 151/82; PULSE 95; TEMP 98.7
[2021-01-03 20:08] VITALS: BP 135/87; PULSE 108; TEMP 98.9
--- NOTE | 2021-01-03 20:13 | NUR ---
PATIENT IS AWAKE, ALERT, AWARE OF SURROUNDINGS WILL CALL ME BY NAME, ARM MOVEMENT AND LEG RANGE OF MOTION IMPROVING, MORE STRENGTH, SELF TALK STATES" NO MORE MEDS SO I CAN GET OUT OF HERE"
[2021-01-04] VITALS (110 sets, daily range): BP systolic 112–162; BP diastolic 65–91; PULSE 82–105; TEMP 97.8–99; O2SAT 83–97
[2021-01-04 05:57] LABS: BASO % 0.1 % (0.0-2.0); EOS # 0.5 (0.0-0.7); EOS % 2.9 % (0-4.0); GRAN # 12.8 (1.4-6.5); GRAN % 79.8 % (42.2-75.2); HEMATOCRIT 39.7 % (42.0-52.0); HEMOGLOBIN 13.7 g/dl (13.5-18.0); LYMPH # 1.9 (1.2-3.4); LYMPH % 11.7 % (20.0-51.0); MEAN CELL VOLUME 93 fl (80.0-100.0); MEAN CORPUSCULAR HEMOGLOBIN 32 pg (27.0-31.0); MEAN CORPUSCULAR HGB CONC 35 g/dl (33.0-37.0); MEAN PLATELET VOLUME 11.4 fl (7.4-10.4); MONO # 0.8 (0.1-0.6); MONO % 5.1 % (1.7-9.3); PLATELET COUNT 122 K/mm3 (130-400); RED BLOOD COUNT 4.28 M/mm3 (4.20-5.60)
[2021-01-04 06:15] LABS: ALBUMIN 3.1 gm/dL (3.5-5.0); BILIRUBIN,TOTAL 1.3 mg/dL (0.0-1.0); C-REACTIVE PROTEIN 0.6 mg/dL (0.0-0.9); CALCIUM 8.4 mg/dL (8.4-10.2); CREATININE, serum 0.64 (0.66-1.25); POTASSIUM 3.7 mmol/L (3.4-5.0); TOTAL PROTEIN 5.7 gm/dL (6.4-8.2)
--- NOTE | 2021-01-04 08:30 | NUR ---
Patient lying in bed resting. He awakens when i enter the room. He is currently on 4L O2 via nasal cannula. He is confused, but easily reoriented as the conversation goes on. He follows direction appropriately and takes medication as instructed. He is offered breakfast, but refuses. I was able to get him to eat some pears, but that's it. Will continue to monitor.
--- NOTE | 2021-01-04 10:30 | NUR ---
Patient turned up to 8L O2 via OM, due to persistent SPO2 at 85%. He is repositioned and sat up better in bed. will try to wean O2 down as possible.
--- NOTE | 2021-01-04 14:30 | NUR ---
Report called to EMELY Arthur. Patient will be taken to 307, and continue to be in covid precautions. Patient confused, but easily reoriented.
--- NOTE | 2021-01-04 15:00 | NUR ---
PT ARRIVED TO FLOOR, ON OXYGEN 7L, SETTLED WITH TV AND BED ALARM ON, NO OTHER NEEDS
--- NOTE | 2021-01-04 17:57 | NUR ---
PT VERY CONFUSED, WILL FREQUENTLY TALK ABOUT THINGS RELATIVE TO HIS HEALTH AND SITUATION AND THEN SWITCH TO ASKING "WHY DID YOU DIVORCE YOUR ". PT ON 7L OXYMASK AT THIS TIME. PT IN BED WITH BED ALARM ON, WILL NOT DRINK WATER WITHOUT PROMPTING. PT REPOSITIONED. NO OTHER NEED
--- NOTE | 2021-01-04 21:35 | NUR ---
Shift assessment completed. Patient sitting up in bed, awake and alert. Patient oriented to self only, able to tell his name and date of . Patient confused about time, plce, and situation. Oriented patient to the room. Patient currently on oxygen 7L via oxymask. Breathing slightly labored. SPO2 92-93% on 7L via oxymask. Cohn in place and draining tea-colored urine. Call light within reach. Will continue to monitor.
[2021-01-05] VITALS (7 sets, daily range): BP systolic 122–133; BP diastolic 58–76; PULSE 69–92; TEMP 97.6–98.4
--- NOTE | 2021-01-05 07:13 | NUR ---
PT AWAKE IN BED WITH OXYMASK ON
[2021-01-05 07:23] LABS: BASO % 0.1 % (0.0-2.0); EOS # 0.7 (0.0-0.7); EOS % 5.2 % (0-4.0); GRAN # 9.8 (1.4-6.5); GRAN % 73.9 % (42.2-75.2); HEMATOCRIT 39.6 % (42.0-52.0); HEMOGLOBIN 13.2 g/dl (13.5-18.0); LYMPH # 2.1 (1.2-3.4); LYMPH % 15.5 % (20.0-51.0); MEAN CELL VOLUME 95 fl (80.0-100.0); MEAN CORPUSCULAR HEMOGLOBIN 32 pg (27.0-31.0); MEAN CORPUSCULAR HGB CONC 33 g/dl (33.0-37.0); MEAN PLATELET VOLUME 12.1 fl (7.4-10.4); MONO # 0.7 (0.1-0.6); MONO % 4.9 % (1.7-9.3); PLATELET COUNT 124 K/mm3 (130-400); RED BLOOD COUNT 4.17 M/mm3 (4.20-5.60); REDCELL DISTRIBUTION WIDTH-CV 13.9 % (11.5-14.5)
--- NOTE | 2021-01-05 08:50 | NUR ---
PT VITALS TAKEN, PT REFUSED BREAKFAST, PT GIVEN ICE WATER, PT REPOSITIONED IN BED, MEDICATIONS GIVEN WITH WATER, MAYORGA DRAINING CLEAR THALIA URINE. PT PLEASANTLY CONFUSED. ASSESSMENT PERFORMED, PT WEARING OXYMASK AT 6L. NO OTHER NEEDS
--- NOTE | 2021-01-05 16:55 | NUR ---
PT PLEASANTLY CONFUSED. REFUSED BREAKFAST AND LUNCH. DINNER HAS NOT BEEN DELIVERED YET. ENCOURAGING PO FLUIDS, MAYORGA EMPTIED, PT REPOSITIONED, JERRY CARE PROVIDED, VITALS TAKEN AND NORMAL. PT TURNED DOWN TO 2L AND SATTING 97%. UNEVENTFUL SHIFT OVERALL, NO OTHER NEEDS
[2021-01-06 03:39] VITALS: BP 135/76; PULSE 64; TEMP 97.8
--- NOTE | 2021-01-06 05:07 | NUR ---
Awake, confused, reoriented and could not repeat half of it, aguilera in use- draining to gravity, poor appetite, unable to feed self, L Shoulder scabs, L face abrasion, PICC to R upper arm intact, O2@2L per oxymask, fall precautions in use, call quinonez w/i reach.
[2021-01-06 09:01] VITALS: BP 118/57; PULSE 69; TEMP 98.9
--- NOTE | 2021-01-06 10:05 | NUR ---
Pt awake upon entry, in bed. Confused. No C/O pain at this time. Shift assessment complete, left Pt call light in reach, bed in lowest position.
[2021-01-06 12:57] VITALS: BP 112/70; PULSE 78; TEMP 97.6
--- NOTE | 2021-01-06 14:38 | NUR ---
soil sort worker provided Estela with [facility] updated clinical information. Estela stated they are still working at obtaining authorization from patient's insurance.
[2021-01-06 17:57] VITALS: BP 117/71; PULSE 72; TEMP 97.7
--- NOTE | 2021-01-06 18:24 | NUR ---
Pt resting in the room. No C/O pain throughout the day. Pt not eating well, even when assisted. VS have remained stable.
[2021-01-06 22:23] VITALS: BP 121/67; PULSE 72; TEMP 99
--- NOTE | 2021-01-06 22:55 | NUR ---
PT CONFUSED, ORIENTED TO PERSON, TIME, AND SITUATION. PT VERBAL SPEECH REPETITIVE. PT HAS COARSE UPPER LOBES AUSCULTATED BILATERALLY. PT HAD ONE BOUT OF INCONTINENCE OF STOOL, CLEANED WITH PERSONAL WIPES. CATHTER CARE PROVIDED. PT HAD PURULENT EXUDATE AROUND MEATUS, REDDENED. PANFILO CHRISTIANSEN NOTIFIED. CATHTER CHANGE AND UA ORDERED AT THIS TIME. CATHTER CHANGED AT THIS TIME. PT HAS SCABBED LESIONS OVER BIALTERAL CHEEKS, OXYMASK STRAPS MOVED AWAY FROM AREA. PT ABLE TO EXPRESS NEEDS, CALL LIGHT WITHIN REACH AT THIS TIME.
[2021-01-06 23:13] LABS: COLLECTION METHOD CATHETER
[2021-01-06 23:19] LABS: MUCOUS Present /lpf; PH 5 (5-8); SQUAMOUS EPITHELIAL 0-2 /hpf; URINE APPEARANCE Hazy; URINE BACTERIA None Seen /hpf; URINE BILIRUBIN Negative (NEGATIVE); URINE BLOOD 2+ (NEGATIVE); URINE COLOR Yellow; URINE GLUCOSE Negative (NEGATIVE); URINE KETONE Negative (NEGATIVE); URINE LEUKOCYTE ESTERASE Negative (NEGATIVE); URINE NITRATE Negative (NEGATIVE); URINE PROTEIN(semi-quant) Negative (NEGATIVE); URINE UROBILINOGEN Negative (NEGATIVE)
[2021-01-07 01:18] VITALS: BP 135/72; PULSE 69; TEMP 98.4
[2021-01-07 03:48] VITALS: BP 129/64; PULSE 70; TEMP 97.6
--- NOTE | 2021-01-07 04:44 | NUR ---
PT CONTINUING ON PLAN OF CARE. PT DENIED PAIN THROUGHOUT SHIFT. PT CONTINUING ON 2L OF O2, STATURATIONS REMAIN ABOVE 92%. PT CONFUSED, INTERMITTENT REPETITIVE AND INCOMPREHENSIBBLE SPEECH THROUGHOUT SHIFT. PT ABLE TO ARTICULATE NEEDS. PT MAYORGA CHANGED THIS SHIFT, DRAINING APPROPRIATELY AT THIS TIME. PT FREE FROM INJURY THIS SHIFT.
--- NOTE | 2021-01-07 05:40 | NUR ---
NO BLOOD RETURN NOTED ON RED LINE THIS SHIFT.
[2021-01-07 06:15] LABS: BASO % 0.1 % (0.0-2.0); EOS # 0.3 (0.0-0.7); EOS % 2.8 % (0-4.0); GRAN # 9.1 (1.4-6.5); GRAN % 75.8 % (42.2-75.2); HEMATOCRIT 40.3 % (42.0-52.0); HEMOGLOBIN 13.8 g/dl (13.5-18.0); LYMPH # 1.9 (1.2-3.4); LYMPH % 15.4 % (20.0-51.0); MEAN CELL VOLUME 94 fl (80.0-100.0); MEAN CORPUSCULAR HEMOGLOBIN 32 pg (27.0-31.0); MEAN CORPUSCULAR HGB CONC 34 g/dl (33.0-37.0); MEAN PLATELET VOLUME 11.9 fl (7.4-10.4); MONO # 0.7 (0.1-0.6); MONO % 5.4 % (1.7-9.3); PLATELET COUNT 123 K/mm3 (130-400)
[2021-01-07 06:26] LABS: CALCIUM 8.3 mg/dL (8.4-10.2); CREATININE, serum 0.58 (0.66-1.25); POTASSIUM 3.9 mmol/L (3.4-5.0)
[2021-01-07 09:19] VITALS: BP 122/67; PULSE 91; TEMP 97.9
--- NOTE | 2021-01-07 09:21 | NUR ---
Pt awake upon entry, clearer communication this AM. No C/O pain at this time. Currently on 2 LPM NC. Shift assessment complete, left Pt call light in reach, bed in lowest position.
[2021-01-07 13:43] VITALS: BP 116/66; PULSE 86; TEMP 99
--- NOTE | 2021-01-07 15:18 | NUR ---
Estela with [facility] advises that patient's insurance denies transfer to [facility]. family preservation worker contacted patient's son, Basim and advised of the above information. Will pursue inpatient rehab and gave a referral to Astrid with [facility] inpatient re[facility].
[2021-01-07 16:00] VITALS: BP 124/68; PULSE 82; TEMP 98.7
[2021-01-07 20:42] VITALS: BP 117/67; PULSE 83; TEMP 98.1
[2021-01-08] VITALS (7 sets, daily range): BP systolic 108–138; BP diastolic 63–75; PULSE 75–116; TEMP 97.4–98.9
--- NOTE | 2021-01-08 05:27 | NUR ---
Resting quietly, requires total assistance, confusion noted, aguilera draining per gravity, assisted with all adls, incontinent of bowel, VS stable, DNR status observed, will continue to monitor.
[2021-01-08 07:29] LABS: BASO % 0.1 % (0.0-2.0); EOS # 0.1 (0.0-0.7); EOS % 0.9 % (0-4.0); GRAN # 11.6 (1.4-6.5); HEMATOCRIT 41.2 % (42.0-52.0); HEMOGLOBIN 14.1 g/dl (13.5-18.0); LYMPH # 1.6 (1.2-3.4); LYMPH % 11.5 % (20.0-51.0); MEAN CELL VOLUME 94 fl (80.0-100.0); MEAN CORPUSCULAR HEMOGLOBIN 32 pg (27.0-31.0); MEAN CORPUSCULAR HGB CONC 34 g/dl (33.0-37.0); MEAN PLATELET VOLUME 12.4 fl (7.4-10.4); MONO # 0.7 (0.1-0.6); MONO % 4.9 % (1.7-9.3); PLATELET COUNT 150 K/mm3 (130-400); REDCELL DISTRIBUTION WIDTH-CV 13.9 % (11.5-14.5)
[2021-01-08 07:35] LABS: C-REACTIVE PROTEIN 0.9 mg/dL (0.0-0.9); CALCIUM 8.7 mg/dL (8.4-10.2); CREATININE, serum 0.53 (0.66-1.25); POTASSIUM 3.7 mmol/L (3.4-5.0)
--- NOTE | 2021-01-08 07:40 | NUR ---
awake and lying in bed, moves legs over side of bed, is talking about he needs to go to a fu neral today, reoriented but continues to talk about the , asked me to check cabinets which I did, again reoriented, when entered room he had removed O2, O2 sat on room air 87%, O2 on per nC and O2 sat up to 93%, full assessment completed, see interventions for further info,
--- NOTE | 2021-01-08 09:30 | NUR ---
Dr Crowe's office notified of consult
--- NOTE | 2021-01-08 09:40 | NUR ---
was seen by PA and patient is agitated and talking about funerals and going places and very confused, to CT per bed for state CT head W/O contrast, was a little more cooperative as he was going down per bed
--- NOTE | 2021-01-08 10:15 | NUR ---
he is now resting in bed with eyes closed, awakened and am meds taken, he took without any issues, he is cooperatiave and remains confused but no agitation noted
--- NOTE | 2021-01-08 11:33 | NUR ---
speech therapy in to work with patient and he again is agitated, notified PANFILO Sam and order received
--- NOTE | 2021-01-08 11:47 | NUR ---
he is quiet now and watching Tv but remains confused and when ask him questions he begins to become agitated, medicated with zyprexa 2.5mg po
--- NOTE | 2021-01-08 12:30 | NUR ---
lying in bed quietly looking at TV
--- NOTE | 2021-01-08 13:30 | NUR ---
therapy in and assisted patient to sitting up on side of bed, he was cooperative during this
--- NOTE | 2021-01-08 14:47 | NUR ---
in bed and appears to be sleeping, resp quiet and easy
--- NOTE | 2021-01-08 16:06 | NUR ---
resting quietly with eyes closed, arouses easily and is pleasant and cooperative at th is time
--- NOTE | 2021-01-08 17:45 | NUR ---
awakened and sat up and assisted him with having supper, he was more cognizant of where he was at this time and was pleasant and cooperative
--- NOTE | 2021-01-08 19:03 | NUR ---
bedside shift report given to EMELY Clifford
[2021-01-09 03:54] VITALS: BP 137/64; PULSE 76; TEMP 97.9
[2021-01-09 07:45] VITALS: BP 113/63; PULSE 78; TEMP 98.5
[2021-01-09 08:20] LABS: BASO % 0.2 % (0.0-2.0); EOS # 0.4 (0.0-0.7); EOS % 3.1 % (0-4.0); GRAN # 9.2 (1.4-6.5); GRAN % 74.3 % (42.2-75.2); HEMOGLOBIN 13.3 g/dl (13.5-18.0); LYMPH # 2.1 (1.2-3.4); LYMPH % 16.7 % (20.0-51.0); MEAN CELL VOLUME 95 fl (80.0-100.0); MEAN CORPUSCULAR HEMOGLOBIN 32 pg (27.0-31.0); MEAN CORPUSCULAR HGB CONC 34 g/dl (33.0-37.0); MONO # 0.7 (0.1-0.6); MONO % 5.2 % (1.7-9.3); PLATELET COUNT 145 K/mm3 (130-400); RED BLOOD COUNT 4.12 M/mm3 (4.20-5.60); REDCELL DISTRIBUTION WIDTH-CV 14.5 % (11.5-14.5)
[2021-01-09 08:32] LABS: CALCIUM 8.6 mg/dL (8.4-10.2); CREATININE, serum 0.58 (0.66-1.25); POTASSIUM 3.6 mmol/L (3.4-5.0)
[2021-01-09 11:15] VITALS: BP 114/66; PULSE 96; TEMP 97.9
[2021-01-09 16:44] VITALS: BP 100/63; PULSE 100; TEMP 98.6
[2021-01-09 20:20] VITALS: BP 113/78; PULSE 100; TEMP 97.7
[2021-01-10] VITALS (8 sets, daily range): BP systolic 100–152; BP diastolic 52–87; PULSE 83–110; TEMP 97.6–98.7
[2021-01-10 08:26] LABS: BASO % 0.2 % (0.0-2.0); EOS # 0.3 (0.0-0.7); EOS % 2.6 % (0-4.0); GRAN # 9.5 (1.4-6.5); GRAN % 76.5 % (42.2-75.2); HEMATOCRIT 42.3 % (42.0-52.0); HEMOGLOBIN 14.4 g/dl (13.5-18.0); LYMPH # 1.9 (1.2-3.4); LYMPH % 15.2 % (20.0-51.0); MEAN CELL VOLUME 96 fl (80.0-100.0); MEAN CORPUSCULAR HEMOGLOBIN 33 pg (27.0-31.0); MEAN CORPUSCULAR HGB CONC 34 g/dl (33.0-37.0); MEAN PLATELET VOLUME 11.1 fl (7.4-10.4); MONO # 0.6 (0.1-0.6); MONO % 4.8 % (1.7-9.3); PLATELET COUNT 143 K/mm3 (130-400); REDCELL DISTRIBUTION WIDTH-CV 14.6 % (11.5-14.5)
[2021-01-10 08:42] LABS: CALCIUM 8.7 mg/dL (8.4-10.2); CREATININE, serum 0.63 (0.66-1.25); POTASSIUM 3.5 mmol/L (3.4-5.0)
--- NOTE | 2021-01-10 09:23 | NUR ---
Astrid with [facility] inpatient rehab has submitted insurance authorization for admission.
--- NOTE | 2021-01-10 10:35 | NUR ---
Patient laying in bed upon entering the room. No complaints at this time. Patient more alert, correctly stated where he was, what year it is, and who the current president is. Patient asking when he will go home, and informed that he will need rehab to regain strength.
--- NOTE | 2021-01-10 18:13 | NUR ---
Patient has been very pleasant today. Has not had any complaints whatsoever. Son visited the patient for a couple of hours. Patient has been up in the recliner most of the day, tolerating it well. 0
--- NOTE | 2021-01-10 22:44 | NUR ---
resting quietly w/o issue, generalized weakness noted, x 2 max assist required with movement, incontinent of bowel, aguilera per gravity in use w/o issue, O2@2L per NC, oriented x 2- not oriented to place, fall precautions in use, no impulsive behavior noted, pleasant.
[2021-01-11 03:12] VITALS: BP 130/83; PULSE 87; TEMP 98
[2021-01-11 06:58] LABS: BASO % 0.2 % (0.0-2.0); EOS # 0.3 (0.0-0.7); EOS % 2.7 % (0-4.0); GRAN # 8.5 (1.4-6.5); GRAN % 78.1 % (42.2-75.2); LYMPH # 1.4 (1.2-3.4); LYMPH % 12.8 % (20.0-51.0); MEAN CELL VOLUME 94 fl (80.0-100.0); MEAN CORPUSCULAR HGB CONC 34 g/dl (33.0-37.0); MEAN PLATELET VOLUME 11.4 fl (7.4-10.4); MONO # 0.6 (0.1-0.6); MONO % 5.6 % (1.7-9.3); PLATELET COUNT 137 K/mm3 (130-400); RED BLOOD COUNT 3.94 M/mm3 (4.20-5.60); REDCELL DISTRIBUTION WIDTH-CV 14.5 % (11.5-14.5)
[2021-01-11 06:59] LABS: HEMATOCRIT 36.9 % (42.0-52.0); HEMOGLOBIN 12.4 g/dl (13.5-18.0); MEAN CORPUSCULAR HEMOGLOBIN 31 pg (27.0-31.0)
--- NOTE | 2021-01-11 07:00 | NUR ---
Report with EMELY Clifford. Pt resting in bed with eyes closed, resp even and unlabored. Call light in reach. Bed alarm on.
[2021-01-11 07:07] LABS: CALCIUM 8.7 mg/dL (8.4-10.2); CREATININE, serum 0.5 (0.66-1.25); POTASSIUM 3.5 mmol/L (3.4-5.0)
[2021-01-11 08:15] VITALS: BP 109/58; PULSE 84; TEMP 98.6
--- NOTE | 2021-01-11 09:00 | NUR ---
Assessment complete. Pt sitting up in bed, alert and oriented to self and month. Pt easily reoriented to location and current situation. O2 provided at 2 L/min via NC. Pt denies pain at this time. Cohn to DD without kinks, clear, yellow urine. Pt reports no appetite at this time. PICC line to right upper arm without s/s of complications. No further needs reported. Call light in reach. Bed alarm on.
[2021-01-11 12:27] VITALS: BP 103/52; PULSE 79; TEMP 98.6
[2021-01-11 16:29] VITALS: BP 121/70; PULSE 91; TEMP 98.4
--- NOTE | 2021-01-11 17:00 | NUR ---
Cohn catheter discontinued per orders and external catheter placed. Pt verbalizes understanding. Call light in reach. Bed alarm on.
--- NOTE | 2021-01-11 20:00 | NUR ---
Report received, assumed care for hotel night auditor. Assessment complete. A&Ox3. Denies pain/nausea/shortness of breath. VS stable. O@@2L/NC. Tolerating mechanical soft diet. PICC to right upper arm flushes without difficulty. External cath in place-draining clear yellow urine. Plan of care discussed for this shift to include HS meds/calling for questions/concerns. Verbalizes understanding/denies needs. Call light in reach. Will monitor.
[2021-01-11 20:05] VITALS: BP 103/51; PULSE 97; TEMP 98.6
[2021-01-11 23:30] VITALS: BP 117/65; PULSE 78; TEMP 98.3
--- NOTE | 2021-01-12 00:30 | NUR ---
Resting eyes closed. No s/s of pain noted. Will continue to monitor.
[2021-01-12 03:58] VITALS: BP 106/58; PULSE 82; TEMP 97.7
--- NOTE | 2021-01-12 04:23 | NUR ---
Sitting up in bed wide awake. States he has been up off and on the last few hours-only sleeping 30 minutes at a time. States being in a new room has him confused. Has been A&Ox3 all shift. Denies pain/nausea. Short of breath with activity. Male external cath in place-draining clear yellow urine. O2 remains at 2L/NC. Denies needs at this time. Call light in reach. Will monitor.
--- NOTE | 2021-01-12 05:26 | NUR ---
AM labs drawn from PICC line. Good blood return/flushes well.
--- NOTE | 2021-01-12 06:50 | NUR ---
Pt resting in bed with eyes closed, resp even and unlabored with O2 at 2 L/min via NC. External catheter in place. Call light in reach. Bed alarm on.
[2021-01-12 07:24] LABS: BASO % 0.1 % (0.0-2.0); EOS # 0.4 (0.0-0.7); EOS % 3.5 % (0-4.0); GRAN # 7.6 (1.4-6.5); GRAN % 77.3 % (42.2-75.2); HEMOGLOBIN 11.8 g/dl (13.5-18.0); LYMPH # 1.4 (1.2-3.4); LYMPH % 13.8 % (20.0-51.0); MEAN CELL VOLUME 96 fl (80.0-100.0); MEAN CORPUSCULAR HEMOGLOBIN 32 pg (27.0-31.0); MEAN CORPUSCULAR HGB CONC 34 g/dl (33.0-37.0); MEAN PLATELET VOLUME 11.7 fl (7.4-10.4); MONO # 0.5 (0.1-0.6); MONO % 4.9 % (1.7-9.3); PLATELET COUNT 133 K/mm3 (130-400); RED BLOOD COUNT 3.65 M/mm3 (4.20-5.60); REDCELL DISTRIBUTION WIDTH-CV 14.9 % (11.5-14.5)
[2021-01-12 07:44] LABS: CALCIUM 8.5 mg/dL (8.4-10.2); CREATININE, serum 0.51 (0.66-1.25); POTASSIUM 3.5 mmol/L (3.4-5.0)
[2021-01-12 07:49] VITALS: BP 123/63; PULSE 83; TEMP 98.1
--- NOTE | 2021-01-12 09:00 | NUR ---
Assessment complete. Pt sitting up in bed after eating breakfast, A&O x 3, denies pain at this time. Breath sounds mostly clear with slight expiratory wheeze in right lower lobe. External urinary catheter in place with clear, dark yellow urine. PICC line to right upper arm without s/s of complications. No further needs reported. Call light in reach.
[2021-01-12 11:45] VITALS: BP 110/63; PULSE 87; TEMP 97.7
--- NOTE | 2021-01-12 14:22 | NUR ---
Pt reports feeling sensation of needing to void. Urinal held in place and pt able to void 300 ml urine without difficulty. Pt reminded to use call light if needing to void again. Pt verbalizes understanding. Call light in reach.
[2021-01-12 16:38] VITALS: BP 112/58; PULSE 79; TEMP 97.7
--- NOTE | 2021-01-12 19:02 | NUR ---
Report with EMELY Fleming. Pt resting in bed, denies needs. Call light in reach. Bed alarm on.
[2021-01-12 19:21] VITALS: BP 104/61; PULSE 92; TEMP 97.6
[2021-01-12 23:10] VITALS: BP 120/62; PULSE 86; TEMP 98.5
--- NOTE | 2021-01-13 01:28 | NUR ---
Patient alert and oriented. Patient currently on room air. Patient denies any SOB or dyspnea. Denies pain, N/V, or diarrhea. Right upper arm PICC site C/D/I. All scheduled meds given per JUL. Call light in reach. Bed alarms on. Will continue to monitor.
[2021-01-13 03:44] VITALS: BP 130/62; PULSE 100; TEMP 98.4
[2021-01-13 08:25] VITALS: BP 105/65; PULSE 109; TEMP 98.2
--- NOTE | 2021-01-13 08:29 | NUR ---
Pt resting in bed, breakfast tray in room. pt was low in bed, he was unable to boost himself higher in to bed. 2assist to boost him. Pt is alert although conversation is scattered. He is not exactly sure why he is here, stated he had a false echo so they made him stay. He stated that he left some belongings in the room just below us. I asked him what, but he wasn't sure. He also keeps stating the he was in an incubator. Pt is incontinent of urine, linens changed and pt given a bed bath.
[2021-01-13 11:43] VITALS: BP 120/80; PULSE 120; TEMP 98
--- NOTE | 2021-01-13 15:48 | NUR ---
PT HR NOTED TO BE TACHY @ THIS TIME. HEART SOUNDS AUSCULTATED ET HR IS TACHY @ 115BPM BUT REGULAR. PT DENIES ANY PAIN OR SOB, IS SITTING UP IN CHAIR. PT STATES THAT HE DOES FEEL ANXIOUS ET THAT HE CURRENTLY HAS CONCERNS ABOUT MONEY ET THAT HIS SON SHOULD BE ON HIS WAY TO SEE HIM. HAS COMPLAINTS OF ITCHY EYES. PT ENCOURAGED TO TRY NOT TO RUB EYES ET OFFERED DISTRACTIONS TO REDUCE ANXIETY. PT GIVEN COLD WET WASHCLOTH TO WASH FACE WITH ON REQUEST. PT DENIES OTHER NEEDS @ THIS TIME. CALL LIGHT WITHIN REACH, CHAIR ALARM ON. WILL CONTINUE TO MONITOR.
[2021-01-13 16:00] VITALS: BP 108/72; PULSE 138; TEMP 98.8
--- NOTE | 2021-01-13 17:56 | NUR ---
PA made aware of pt increase in heart rate. New orders received to include EKG as well as Telemetry. EKG complete and Tele on. Pt did have another episode of being incontinent of bowel and urine. Pt was too weak to stand more than few seconds at a time. Unable to get pt to bed due to weakness and amount of BM. Took several times of standing/sitting to get him cleaned up and new chux/brief on. Pt reported that his legs and arms just feel like jello. Pt going to sit up in the chair to eat dinner and then will most likely require the sit to stand to get him back in to bed. Pt reported not having any complaints of pain.
[2021-01-13 21:18] VITALS: BP 134/74; PULSE 130; TEMP 98.6
--- NOTE | 2021-01-13 21:54 | NUR ---
Patient A/Ox2. Assisted patient to the bedside commode. Patient very weak and unable to stand up and bear weight. Used [facility] for transfer. Patient had large soft formed BM x1 and large void. Assisted patient back to the bed. All scheduled meds given per JUL. Call light within reach. Bed alarms on. Will continue to monitor.
[2021-01-14 00:19] VITALS: BP 116/62; PULSE 123; TEMP 98.2
[2021-01-14 04:43] VITALS: BP 96/61; PULSE 112; TEMP 98.1
[2021-01-14 07:45] VITALS: BP 113/63; PULSE 110; TEMP 98.1
--- NOTE | 2021-01-14 09:40 | NUR ---
SCHEDULED MEDICATIONS GIVEN. SHIFT ASSESSMENT PREFORMED. PATIENT CURRENTLY REQUIRING 2 L OF O2 VIA NASAL CANNULA . PATIENT DENIES ANY PAIN, DISCOMFORT, OR FURTHER NEEDS AT THIS TIME. CALL LIGHT IN REACH. FALL PRECAUTIONS IN PLACE. VSS. PT WORKING WITH PATIENT.
--- NOTE | 2021-01-14 09:59 | NUR ---
Astrid with [facility] obtained insurance authorization and accepts patient today. cellar worker contacted patient's son, Basim, and advised of the transfer plans. Worker provided Basim with the phone number to the Inpatient rehab unit.
[2021-01-14 10:22] LABS: BASO % 0.3 % (0.0-2.0); EOS # 0.2 (0.0-0.7); EOS % 1.6 % (0-4.0); GRAN # 7.9 (1.4-6.5); GRAN % 82.7 % (42.2-75.2); HEMOGLOBIN 11.9 g/dl (13.5-18.0); LYMPH # 0.9 (1.2-3.4); LYMPH % 9.5 % (20.0-51.0); MEAN CELL VOLUME 94 fl (80.0-100.0); MEAN CORPUSCULAR HEMOGLOBIN 32 pg (27.0-31.0); MEAN CORPUSCULAR HGB CONC 34 g/dl (33.0-37.0); MEAN PLATELET VOLUME 11.2 fl (7.4-10.4); MONO # 0.5 (0.1-0.6); MONO % 5.5 % (1.7-9.3); PLATELET COUNT 157 K/mm3 (130-400); RED BLOOD COUNT 3.71 M/mm3 (4.20-5.60); REDCELL DISTRIBUTION WIDTH-CV 14.7 % (11.5-14.5)
[2021-01-14 10:38] LABS: CALCIUM 8.8 mg/dL (8.4-10.2); CREATININE, serum 0.48 (0.66-1.25); POTASSIUM 3.7 mmol/L (3.4-5.0)
[2021-01-14 11:32] VITALS: BP 95/73; PULSE 108; TEMP 98.5
[2021-01-14] MEDS ORDERED: CLARITIN 1010 MG/TAB PO (12:47)
[2021-01-14] MEDS ORDERED: FLOMAX 0.40.4 MG/CAP PO (12:47)
[2021-01-14] MEDS ORDERED: IPRATROPIUM BROM3 M1 IH (12:47)
[2021-01-14] MEDS ORDERED: ZYPREXA2.5 MG PO (12:49)
[2021-01-14] MEDS ORDERED: ARIXTRA SQ (12:49)
[2021-01-14] MEDS ORDERED: TYLENOL 325MG325 MG PO (12:49)
[2021-01-14] MEDS ORDERED: ZYPREXA 5MG5 MG PO (12:50)
--- NOTE | 2021-01-14 13:00 | NUR ---
First visit from the information technology officer. No needs right now.
--- NOTE | 2021-01-14 14:13 | NUR ---
PATIENT TRANSFERED TO [facility]. REPORT GIVEN TO EMELY ARRIOLA. PATIENT DENIES ANY PAIN, DISCOMFORT, SOA, OR FURTHER NEEDS AT THIS TIME. VSS. PATIENT A&O.
== END 2021-01-14 14:16 | DRG 207 ==
LOC: COL.ER 20:58 → ICU 23:55 → MEDICAL 01-04 15:19
PROVIDERS: Emergency Medicine; Internal Medicine; Internal Medicine Critical Care Medicine; Internal Medicine Pulmonary Disease; Internal Medicine Sleep Medicine; Nurse Practitioner Primary Care; Physician Assistant; Student in an Organized Health Care Education/Training Program; ADMIT Internal Medicine
PROC: 5A09457 Assistance with Respiratory Ventilation, 24-96 Consecutive Hours, Continuous Positive Airway Pressure (ICD-10-PCS; 2020-12-16)
PROC: 5A1955Z Respiratory Ventilation, Greater than 96 Consecutive Hours (ICD-10-PCS; principal; 2020-12-17)
PROC: 0BH17EZ Insertion of Endotracheal Airway into Trachea, Via Natural or Artificial Opening (ICD-10-PCS; 2020-12-17)
PROC: XW043E5 Introduction of Remdesivir Anti-infective into Central Vein, Percutaneous Approach, New Technology Group 5 (ICD-10-PCS; 2020-12-17)
PROC: XW043H5 Introduction of Tocilizumab into Central Vein, Percutaneous Approach, New Technology Group 5 (ICD-10-PCS; 2020-12-17)
PROC: 02HV33Z Insertion of Infusion Device into Superior Vena Cava, Percutaneous Approach (ICD-10-PCS; 2020-12-17)
DX: U07.1 COVID-19 (principal); J12.82 Pneumonia due to coronavirus disease 2019; J96.01 Acute respiratory failure with hypoxia; G93.41 Metabolic encephalopathy; E87.1 Hypo-osmolality and hyponatremia; R65.10 Systemic inflammatory response syndrome (SIRS) of non-infectious origin without acute organ dysfunction; G72.81 Critical illness myopathy; E87.2 Acidosis; E87.0 Hyperosmolality and hypernatremia; E44.0 Moderate protein-calorie malnutrition; Z66 Do not resuscitate; R59.0 Localized enlarged lymph nodes; J98.2 Interstitial emphysema; N20.0 Calculus of kidney; N40.0 Benign prostatic hyperplasia without lower urinary tract symptoms; R00.0 Tachycardia, unspecified; M10.9 Gout, unspecified; E66.01 Morbid (severe) obesity due to excess calories; R41.0 Disorientation, unspecified; R74.01 Elevation of levels of liver transaminase levels; D72.829 Elevated white blood cell count, unspecified; Z68.39 Body mass index [BMI] 39.0-39.9, adult
CPT/HCPCS: 99223-AI; 99231-AI; 99232-AI; 99233-AI; 99239; C1751; J0330; J0456; J0696; J1100; J1650; J1652; J1940; J2212; J2250; J2704; J2765; J3010; J7030; J7050; J7070; J7121; J8540; Q0249; Q9967

== ENCOUNTER 2021-01-14 10:42 | Inpatient (IN) | payer OTHER ==
[~2021-01-14] VITALS: Ht 175.3 cm; Wt 105.0 kg
[~2021-01-14 10:42] MED LIST: ZYLOPRIM 300MG300 MG PO
[2021-01-14] MEDS ORDERED: CLARITIN 1010 MG/TAB PO (12:47)
[2021-01-14] MEDS ORDERED: FLOMAX 0.40.4 MG/CAP PO (12:47)
[2021-01-14] MEDS ORDERED: IPRATROPIUM BROM3 M1 IH (12:47)
[2021-01-14] MEDS ORDERED: TYLENOL 325MG325 MG PO (12:49)
[2021-01-14] MEDS ORDERED: ZYPREXA2.5 MG PO (12:49)
[2021-01-14] MEDS ORDERED: ARIXTRA SQ (12:49)
[2021-01-14] MEDS ORDERED: ZYPREXA 5MG5 MG PO (12:50)
--- NOTE | 2021-01-14 15:30 | NUR ---
Report received from EMELY Huggins. Patient is a 60 y/o male transferred from [facility] to [facility], room 338. Patient is A & O x 3 and denies pain at this time. Patient is on 2 L O2 via NC. Patient has intermitten confusion. Patient is sit to stand and is and weak and knees buckle. Patient is on regular diet and swallows pills whole. Patient runs tachy 120-130s. Patient has PICC in [facility]. Patient has completed all protocol for Covid and has been cleared by ID. Patient was continent before Covid but is not now; uses urinal and bedside commode. Will continue to monitor patient throughout shift.
[2021-01-14 17:33] VITALS: BP 125/62; PULSE 93; TEMP 98.3
--- NOTE | 2021-01-14 19:35 | NUR ---
RECEIVED CHANGE OF SHIFT REPORT FROM DAY SHIFT NURSE. BED ALARM ON WITH CALL LIGHT WITHIN REACH.
--- NOTE | 2021-01-15 01:49 | NUR ---
OBSERVED PATIENT WITH RESTLESS SLEEP, WOULD HAVE OXYGEN VIA NASAL CANNULA OFF FACE, LAYING NEXT TO PATIENT WITH PATIENT STATING HE WOKE UP SHORT OF AIR AND DIDN'T KNOW WHAT TO DO. PATIENT WOULD SET OFF BED EXIT ALARM DUE TO RESTLESS MOVEMENT WHEN HE IS AWAKE/TRYING TO LOCATE NASAL CANNULA. DOES NOT FOLLOW COMMANDS WELL TO PLACE NASAL CANNULA BACK ON FACE FOR O2. ENCOURAGED PATIENT TO REPOSITION SELF ONTO BACK THAT REQUIRED STAFF TO MANUALLY START PATIENT TO TURN ONTO LEFT OR RIGHT SIDE OF BODY FOR SLEEP POSITIONING.
[2021-01-15 05:00] VITALS: BP 159/61; PULSE 94; TEMP 98.5
--- NOTE | 2021-01-15 07:23 | NUR ---
CHANGE OF SHIFT REPORT GIVEN TO DAY SHIFT NURSERHIANNON RN.
[2021-01-15 08:13] VITALS: BP 116/61; PULSE 102; TEMP 97.7
--- NOTE | 2021-01-15 15:10 | NUR ---
Welcomed pt to the Rehab unit. Explained the rehab process & goals. Completed SW assessment w/ pt. He is alert & oriented. He is able to communicate his needs & wants to others. He has his own teeth, wears readers, & has some hearing issues. He lives at home alone, in a 1 story home. There are 2-3 steps to enter w/out handrails. The bathroom has a tub/shower combo but no grab bars. The toilet is standard height. Pt reports walking w/out a device & was independent w/ his self care. He also reports cooking, cleaning, doing laundry, shopping, driving, medication management, finance management, & worked project program manager. He has r/walker & cane available. [facility]acy: [facility] & reports he has no concerns or issues w/ affording his medications. PCP: Dr. Puga (doesn t know who he sees since he retired) DPOA: reports having DPOA paper work, which the hospital has on fill. Pt had no questions/concerns at this time about his rehab stay. SW will continue to follow to provide support & assist w/ d/c planning. Reviewed the team conference notes & explained that the team is working on completing their assessments since he was just admitted yesterday, which he understood. Told him that the team will re-evaluate next Wednesday.
--- NOTE | 2021-01-15 23:40 | NUR ---
ALERT OX3. DENIES PAIN, SOA OR CHEST PAIN. FEELS LIKE HE HAS ALLERGY SYMPTOMS W STUFFY NOSE, NO NEW AND ON CLARITIN. PM MEDS GIVEN. CALL LIGHT WI REACH. NEEDS MET.
[2021-01-16 04:19] VITALS: BP 108/54; PULSE 114; TEMP 97.5
--- NOTE | 2021-01-16 05:39 | NUR ---
RESTED THROUGH THE NIGHT WITHOUT INCIDENT. NEEDS MET.
--- NOTE | 2021-01-16 05:55 | NUR ---
PT REPORTS GOUT FLARE UP AND IS REQUESTING [facility]. LEO WHITTAKER CALLED FOR ORDERS .
--- NOTE | 2021-01-16 06:30 | NUR ---
Report received from EMELY Velazquez. Patient is sleeping in bed. Call light and bedside table are within reach. Will continue to monitor patient throughout shift.
--- NOTE | 2021-01-16 10:30 | NUR ---
Patient c/o pain from gout in right upper arm and great toe on right foot. Patient states his pain is 10/10 and is tender to palpation. Medication provided to relieve pain.
--- NOTE | 2021-01-16 14:00 | NUR ---
Patient has completed all therapies for the day and is resting in recliner. Patient denies pain at this time. Call light and bedside table are within reach.
[2021-01-16 17:18] VITALS: BP 116/69; PULSE 99; TEMP 98.2
--- NOTE | 2021-01-16 21:00 | NUR ---
PT RESTING IN BED ASLEEP UPON MY ENTRANCE TO ROOM. NOTED SLEEP APNEA LASTING APPROX 10-15SEC. O2 2L NC. PT SHIVERING. RELATES HE IS COLD. CHECKED TEMP- 98.4 ORALLY. ADDED ANOTHER BLANKET. PT C/O GOUT PAIN TO RT HAND AND LLE. ELEVATED ON PILLOW. SEE MAR FOR COLCRYS GIVEN ON SCHEDULE. HAD TYLENOL EARLIER. CALL LIGHT IN REACH. BED ALARM SET.
--- NOTE | 2021-01-16 21:00 | NUR ---
PICC LINE INTACT. PURPLE PORT SL RESISTANT TO FLUCH. UNABLE TO FLUSH RED PORT.
[2021-01-17] VITALS (7 sets, daily range): BP systolic 109–124; BP diastolic 63–68; PULSE 106–132; TEMP 97.7–98.4
--- NOTE | 2021-01-17 03:47 | NUR ---
FOUND PT W/O OXYGEN ON. REPALCED NC . O2 2L O2 SAT 83%. ATER SEVERAL MINUTES O2 SAT STILL DECREASED . O2 TURNED UP TO 5L . O2 SAT INCREASED TO 85% HR ELEVATE 123-130 REGULAR. NOTIFIED RT. O2 UP TO 6L. RT HERE. WILL GIVE A TREATMENT AND WILL ADD HUMIDITY.
--- NOTE | 2021-01-17 04:00 | NUR ---
LEO CUADRA NOTIFIED OF CHANGE OF STATUS. SEE NEW ORDERS.
--- NOTE | 2021-01-17 04:20 | NUR ---
GAVE LASIX 40MG PO AND GUAFENISIN SYRUP. ECHO ORDERED FOR THE AM.
--- NOTE | 2021-01-17 04:22 | NUR ---
PT PERIODICALLY CONFUSED. THINKS HE IS AT HOME BUT THEN REALIZES HE IS NOT. PT ORIENTED TO MONTH AND YEAR. DRIFTS TO SLEEP THEN WAKES. STILL TACHYAPNEIC.
--- NOTE | 2021-01-17 04:39 | NUR ---
PT RESTING BUT RESTLESS. O2 6L NC HUMIDIFIED. SAT 94% HR 116
--- NOTE | 2021-01-17 05:12 | NUR ---
PT RESTLESS. RESTING BUT HAVING SLEEP APNEA LASTING 10 SEC. O2 SAT RANGES 89-91% ON 6L NC.
--- NOTE | 2021-01-17 05:30 | NUR ---
PT USED CALLIGHT TO USE URINAL. ASSISTED WITH URINAL. VOIDED 500CC.
--- NOTE | 2021-01-17 06:53 | NUR ---
Report recieved from EMELY Ramos. Patient is sleeping in bed. Call light and bedside table are within reach. Will continue to monitor patient throughout shift.
[2021-01-17 08:18] LABS: BASO % 0.1 % (0.0-2.0); EOS # 0.1 (0.0-0.7); EOS % 0.8 % (0-4.0); GRAN # 8.5 (1.4-6.5); GRAN % 85.2 % (42.2-75.2); HEMOGLOBIN 10.5 g/dl (13.5-18.0); LYMPH # 0.9 (1.2-3.4); MEAN CELL VOLUME 98 fl (80.0-100.0); MEAN CORPUSCULAR HEMOGLOBIN 32 pg (27.0-31.0); MEAN CORPUSCULAR HGB CONC 33 g/dl (33.0-37.0); MEAN PLATELET VOLUME 10.9 fl (7.4-10.4); MONO # 0.4 (0.1-0.6); MONO % 4.4 % (1.7-9.3); PLATELET COUNT 174 K/mm3 (130-400); RED BLOOD COUNT 3.26 M/mm3 (4.20-5.60); REDCELL DISTRIBUTION WIDTH-CV 14.5 % (11.5-14.5)
[2021-01-17 08:19] LABS: CREATININE, serum 0.48 (0.66-1.25); MAGNESIUM 1.7 mg/dL (1.6-2.3); POTASSIUM 3.3 mmol/L (3.4-5.0)
--- NOTE | 2021-01-17 08:21 | NUR ---
This nurse left a message for EMELY Huddleston in reference to patient's PICC. The purple port is sluggish and the red one will not flush.
[2021-01-17 08:29] LABS: HEMATOCRIT 31.9 % (42.0-52.0)
--- NOTE | 2021-01-17 11:00 | NUR ---
This nurse went in patient's room to check on him and he was with TESS Morrissey. He was measuring patient's SATs and was waiting for SATs 84-86% to get above 90% Patient was currently on 6 liters NC. This nurse and PT waited for about 10 mins and patient never hit above 90%. This nurse called RT and requested a mask and patient's SAT got up to 92% on 6 liters. Will continue to monitor patient throughout shift.
--- NOTE | 2021-01-17 12:20 | NUR ---
Patient ate very little of his breakfast and now lunch. Patient states he just does not feel like eating and he contributed it to not being able to smell or taste. This nurse asked the patient if he wanted to try something else on the menu and he declined. Will continue to monitor patient throughout shift.
--- NOTE | 2021-01-17 14:07 | NUR ---
Patient has completed all therapies for the day. Patient is in WC and requesting to go back to bed because his back is hurting. Patient states pain is 5/10. This nurse will comply with patient's wish to go to bed.
--- NOTE | 2021-01-17 19:40 | NUR ---
NOTIFIED ЕЛЕНА WHITTAKER TO GIVE UPDATE STATUS REPORT. RT NOTIFIED TO GIVE SVN TX AT THIS TIME. SEE NEW ORDERS.
--- NOTE | 2021-01-17 20:10 | NUR ---
RT HERE TO PLACE BIPAP. PT AGREEABLE.
--- NOTE | 2021-01-17 20:33 | NUR ---
PT RESTING WITH BIPAP IN PLACE.
--- NOTE | 2021-01-17 20:57 | NUR ---
PT NOW SLEEPING SOUNDLY WITH BIPAP ON. O2SAT 96%.
--- NOTE | 2021-01-17 22:27 | NUR ---
PT PULLED OFF BIPAP. INCONT OF URINE. CHANGED ADULT DIAPER AND REPOSITIONED. PT SWEATY- CALLED RT TO CHANGED BIPAP STRAPS. O2 MASK BACK ON FOR NOW AT 7L. PT CONFUSED. 02 SAT 87-90%
--- NOTE | 2021-01-17 23:11 | NUR ---
PT BACK ON BIPAP. SLEEPING WELL AT THIS TIEM.
--- NOTE | 2021-01-17 23:35 | NUR ---
PT PULLS OFF BIPAP. O2 MASK BACK ON AT 7L
--- NOTE | 2021-01-18 01:34 | NUR ---
PT AWAKE. VOIDED 350CC IN URINAL. PT KEEPING OXY MASK IN PLACE.
[2021-01-18 05:23] VITALS: BP 102/59; PULSE 116; TEMP 98.4
--- NOTE | 2021-01-18 06:44 | NUR ---
Report received from EMELY Ramos. Patient is in bed sleeping. Call light and bedside table are within reach. Will continue to monitor patient throughout shift.
[2021-01-18 07:25] LABS: POTASSIUM 4.1 mmol/L (3.4-5.0)
--- NOTE | 2021-01-18 11:30 | NUR ---
Patient continually takes off mask. This nurse has discussed the importance of keeping mask on to keep O2 stable. Patient acknowledges he understands but will still take mask off.
--- NOTE | 2021-01-18 14:00 | NUR ---
Patient is having difficulty with eating. This nurse cut patient's food up it small bites and instructed the patient to drink small sips of water after eating. Patient is still having difficulty swallowing food and is couging with meals. Patient became frustrated at both breakfast and lunch with eating. will continue to monitor patient throughout shift.
--- NOTE | 2021-01-18 16:00 | NUR ---
Patient has had 2 episodes of diarrhea. This nurse called Dr. Lobo and he consented to Loperamide. Gave patient 4 mg of loperamide.
[2021-01-18 18:00] VITALS: BP 128/69; PULSE 110; TEMP 97.9
--- NOTE | 2021-01-18 18:58 | NUR ---
FOUND PT LAYING SIDEWAYS IN BED USING URINAL. O2 OFF. DYSPNEIC. ASSISTED BACK UP TO BED. O2 SAT 73% RA. PLACED O2 AT 8L MASK. O2 SAT UP TO 83%
--- NOTE | 2021-01-18 19:00 | NUR ---
NOTIFIED RT FOR ASSESS AND TX. WILL BE UP TO START BIPAP.
--- NOTE | 2021-01-18 19:04 | NUR ---
PT NOW RESTING 8L O2 MASK. O2 SAT 92%.
--- NOTE | 2021-01-18 21:09 | NUR ---
PT ORIENTED AT TIMES. PT HAS DIFFICULTY KEEPING O2 MASK ON AND SAT'S DECREASE. REMINDING PT FREQUENTLY TO LEAVE O2 MASK ON. HAS BIPAP ON AT THIS TIME. BUT MESSES WITH IT ALOT. SEE MAR FOR TYLENOL GIVEN FOR GOUT PAIN IN RT ARM. GAVE COUGH MED ALSO. ANXIOUS AND RESTLESS AT TIMES.
[2021-01-18 21:37] VITALS: PULSE 109
--- NOTE | 2021-01-19 00:56 | NUR ---
PT RESTING INTERMITTENTLY. BIPAP OFF EALRIER FOR FREQ ALARMING ANDD AIR LEAK. O2 MASK ON. NEED REMINDED TO KEEP MASK IN PLACE. PT CONFUSED AT TIMES. ASKING FOR HIS CHILI THAT HE THOUGHT WAS ON HIS TABLE. ASSISTED WITH URINAL. CALL LIGHT IN REACH. BED ALARM SET.
--- NOTE | 2021-01-19 03:50 | NUR ---
PT RESTING. O2 AT 10L PER MASK.
[2021-01-19 04:12] VITALS: BP 109/53; PULSE 108; TEMP 98.3
--- NOTE | 2021-01-19 06:31 | NUR ---
radiology here earlier for chest xray.
--- NOTE | 2021-01-19 06:57 | NUR ---
Report received from EMELY Ramos. Patient is sleeping in bed. Call light and bedside table are within reach. Will continue to monitor patient throughout shift.
--- NOTE | 2021-01-19 07:25 | NUR ---
Patient is still choking and coughing while eating. This nurse continues to encourage patient to drink small sips of water inbetween eating.
--- NOTE | 2021-01-19 10:14 | NUR ---
Patient is sleeping in bed. Current SPO2 is 94% on 8 liters of oxygen. Patient is maintaing SPO2 above 90%. Will continue to monitor patient throughout shift.
[2021-01-19 18:00] VITALS: BP 128/75; PULSE 139; TEMP 97.3
--- NOTE | 2021-01-19 21:02 | NUR ---
PT RESTING IN BED. HAS TO BE REMINDED TO KEEP O2 MASK ON. EASILY DESATURATES W/O O2. O2 SAT RANGES 78-90% ACTIVITY VS REST. GAVE GUAFENESIN COUGH SYRUP. RELATES HIS GOUT IS IMPROVED NOW. CALL LIGHT IN REACH. BED ALARM SET.
--- NOTE | 2021-01-20 02:04 | NUR ---
PT CONTINUOUSLY TAKJES OFF O2 MASK. REMINDED PT TO KEEP ON.
[2021-01-20 04:00] VITALS: BP 113/58; PULSE 115; TEMP 97.4
--- NOTE | 2021-01-20 05:46 | NUR ---
PT RESTING QUIETLY AT THIS TIME WITH O2 MASK IN PLACE.
--- NOTE | 2021-01-20 06:41 | NUR ---
Report received from EMELY Ramos. Patient is sleeping in bed. Call light and bedside table are within reach. Will continue to monitor throughout shift.
--- NOTE | 2021-01-20 08:15 | NUR ---
Patient's oxygen was on 15 lpm. This nurse titrated O2 to 6 lpm. Patient is tolerating titration well at this time. Will continue to monitor throughout shift.
--- NOTE | 2021-01-20 11:30 | NUR ---
Patient has completed all therapies for the day and is resting in recliner. Patient continues to be SOA with activity and at rest. Call light and bedside table are within reach. Will continue to monitor patient throughout shift.
[2021-01-20 17:15] VITALS: BP 111/71; PULSE 104; TEMP 98.1
--- NOTE | 2021-01-20 17:56 | NUR ---
Patient is tolerating 5 lpm well. SPO2 continues to maintain above 90%. Will continue to monitor throughout shift.
--- NOTE | 2021-01-20 20:00 | NUR ---
PATIENT MOVED TO BED WITH SIT TO STAND. PATIENT IS ALERT AND ORIENTED X4 BUT CONFUSED AT TIMES. PATIENT WAS SATING IN THE 90S ON 5L OF O2 BEFORE MOVING BUT AFTER MOVING WAS BUMPED TO 8L TO CONTINUE TO SAT IN THE LOW 90S. PATIENT ON GENERAL DIET AND HAS SCDS ON BILATERALLY. PATIENT HAS DIMINISHED LUNG SOUNDS. PATIENT DENIES PAIN OR FURTHER NEEDS AT THIS TIME. CALL LIGHT WITHIN REACH. HEAD TO TOE ASSESSMENT COMPLETE.
--- NOTE | 2021-01-20 21:30 | NUR ---
RT CAME IN TO PUT PT ON BIPAP FOR THE NIGHT. HE IS SATING 90-92%
--- NOTE | 2021-01-20 23:36 | NUR ---
PATIENT TOOK OFF BIPAP AND BEGAN SATING 60-65% WAS REFUSING TO BUT BIPAP BACK ON. RT CALLED AND PATIENT PUT BACK ON BIPAP. NOW SATING 97% AGAIN.
--- NOTE | 2021-01-21 05:51 | NUR ---
PATIENT TOOK MASK OFF THROUGHOUT THE NIGHT. WHEN HE DID THIS HE WOULD DESAT INTO THE 70S BUT WHEN HE PUT IT BACK ON WOULD BE SATING 97% AND ABOVE. RT CHANGED TYPE OF BIPAP MASK FOR MORE COMFORT. PATIENT WAS ABLE TO SLEEP MORE COMFORTABLY AFTER THAT. PATIENT WAS ABLE TO URINATE 750ML LAST NIGHT. PATIENT DENIES FURTHER NEEDS AT THIS TIME. WILL REPORT TO DAYSTNFT
[2021-01-21 06:11] VITALS: BP 122/70; PULSE 109; TEMP 98.8
--- NOTE | 2021-01-21 10:21 | NUR ---
PT UP WITH THERAPY AFTER BREAKFAST. COMPLETED AM THERAPIES. AM MEDS GIVEN ORDERED. PT EATING AND DRINKING WITH NO N/V. PT REPORTS MAKING GOOD PROGRESS WITH THERAPY AND IS HAPPY TO BE MORE ACTIVE.
--- NOTE | 2021-01-21 14:07 | NUR ---
Visited w/ pt. He stated he had an okay weekend but feels he is slowly progressing. He had no questions or concerns.
--- NOTE | 2021-01-21 15:09 | NUR ---
Admission QIM scores were reviewed by the team. Code of 5 chosen for eating was determined by team discussion to be the most usual performance for this patient during the assessment period. Code of 88 chosen for rolling left to right was determined by team discussion to be the most usual performance before interventions for this patient during the assessment period. Code of 3 chosen for sit to lying was determined by team discussion to be the most usual performance for this patient during the assessment period. Code of 2 chosen for lying to sitting on side of bed was determined by team discussion to be the most usual performance for this patient during the assessment period. Code of 1 for chair/bed to chair transfers was determined by team discussion to be the most usual performance for this patient during the assessment period.--Shefali Dye, PD
[2021-01-21 18:02] VITALS: BP 119/65; PULSE 109; TEMP 97.8
--- NOTE | 2021-01-21 21:10 | NUR ---
ALERT AND OX4. DENIES CHEST PAIN, SOA OR DIZZY. NO GENALIZED PAIN. OXY MASK AT 10L/ REF TO WEAR BIPAP TONIGHT PER RT. PM MEDS GIVEN. POC DISCUSSED. CALL LIGHT WI REACH. DOOR SHUT PER PT REQ, NEEDS MET.
[2021-01-22 06:52] VITALS: BP 121/62; PULSE 82; TEMP 98.4
--- NOTE | 2021-01-22 07:00 | NUR ---
Report erceived from EMELY Velazquez.
[2021-01-22 08:00] VITALS: PULSE 126
[2021-01-22 08:15] VITALS: PULSE 114
--- NOTE | 2021-01-22 09:00 | NUR ---
0800 Upon entry in patients room, pt is at the bottom of the bed with 02 removed, states he was just trying to "stretch his legs and back" but removed 02 because "chord did not reach". Pt appears very pale and confused. Replaced 02 immediately. Able to get him to sit up at side of bed with assistance of SHIRT LINE OPERATOR and get him up with multimple attempts with sit to stand. Pt having trouble following cue's to keep legs in lift and arms gripped on arm rest. Once in chair able to get pulse oximeter on him, approximately 10 minutes after entry and 02 saturations were at 82% on 10L via HFNC. Remained in room until saturations were at 89%, alarm on and breakfast in front of patient. Called RT to get extension tubing for Oxymask for future use. Pt has been incontinent of bowel in brief, changed and cleaned. 0900 Able to answer all orientation questions but did get confused during episode when 02 removed. After 1 hour pt is now looking more pink and appears to be tracking well. 02 saturations at 93% on 10L HFNC. Will continue to monitor.
--- NOTE | 2021-01-22 11:00 | NUR ---
Pt chair alarm going off, upon entry into room pt is laying sideways in the bed towards the bottom, states he was trying to find the TV remote from the wheelchair and "just ended up this way". 02 remains on but saturations upon finding him are 62%, called RT, bumped up from 5L to 8L and barely at 90%. Assisted pt into safe position in bed and bed alarm on. Will continue to monitor closely.
--- NOTE | 2021-01-22 12:23 | NUR ---
Pt called on the call light to go to commode. able to pivot transfer with 2 person assist well but did not have BM. When back in bed pt was vyer tachypneac and upon putting SPO2 pt found to be at 68% with 8L HFNC, after approximately 5 minutes pt able to return to 90% but pt still labored breathing and tachypneac. Will address at team meeting today
--- NOTE | 2021-01-22 15:03 | NUR ---
Reviewed team conference notes w/ pt. He stated he understood & agreed w/ his current level of functioning. Informed him the team plans to re-evaluate next 01/29/21. Did talk to him about team wanting to make referral to an LTAC to see if they could assist more w/ his oxygen needs. He was fine w/ this plan. Contacted Basim pt's son. Reviewed the team conference notes w/ him. He stated he understood & agreed. Informed him of the plan to re-evaluate next 01/29/21 but inquired about SW contact LTACs to see about getting pt there to help w/ his oxygen needs. Son was in agreeance w/ this too. The son did voice concerns about pt choking on his meals & not getting ensures. Told him that SW would talk w/ ST & dietary. SW did ask about any paperwork for disability & was told he feels he has this worked out. Told him if he needs any help to let SW know. He had no further questions or concerns.
[2021-01-22 16:00] VITALS: BP 140/68; PULSE 109; TEMP 97.4
--- NOTE | 2021-01-22 16:01 | NUR ---
Pt was incontinent of bowel and bladder in room but wanted to get up to commode. Upon returning from the commode pt reserve was depleted and very SOA, pulse ox found to be 59% with OM at 8L. After resting in bed for 10 minutes only able to get it 87%. Called RT and told them, called PANFILO Saucedo with hospitalist and notified of saturations with any activity.
[2021-01-22 16:13] LABS: ARTERIAL BLD GAS O2 SATURATION 97.4 % (92-100); ARTERIAL BLD GAS TCO2 CT 26.5; ARTERIAL BLOOD GAS BASE EXCESS 1.3 (-2-2); ARTERIAL BLOOD GAS HCO3 25.3 meq/L (22-26); ARTERIAL BLOOD GAS PCO2 38.2 mmHg (35-45); ARTERIAL BLOOD GAS PO2 94.9 mmHg (80-100); ARTERIAL BLOOD GAS pH 7.44 (7.35-7.45)
[2021-01-22 16:31] LABS: BASO % 0.2 % (0.0-2.0); EOS # 0.2 (0.0-0.7); EOS % 1.8 % (0-4.0); GRAN # 6.9 (1.4-6.5); GRAN % 82.1 % (42.2-75.2); LYMPH # 0.9 (1.2-3.4); MEAN CELL VOLUME 101 fl (80.0-100.0); MEAN CORPUSCULAR HGB CONC 31 g/dl (33.0-37.0); MEAN PLATELET VOLUME 10.4 fl (7.4-10.4); MONO # 0.4 (0.1-0.6); MONO % 4.1 % (1.7-9.3); PLATELET COUNT 373 K/mm3 (130-400); RED BLOOD COUNT 3.09 M/mm3 (4.20-5.60); REDCELL DISTRIBUTION WIDTH-CV 14.6 % (11.5-14.5)
[2021-01-22 16:34] LABS: HEMATOCRIT 31.2 % (42.0-52.0); HEMOGLOBIN 9.8 g/dl (13.5-18.0); MEAN CORPUSCULAR HEMOGLOBIN 32 pg (27.0-31.0)
[2021-01-22 16:42] LABS: CALCIUM 8.6 mg/dL (8.4-10.2); CREATININE, serum 0.44 (0.66-1.25); POTASSIUM 3.7 mmol/L (3.4-5.0)
--- NOTE | 2021-01-22 18:26 | NUR ---
Pt was able to keep bipap on for about an hour this afternoon and it seems to help a lot, will encourage shift engineer to give PRN anxiety meds and get on bipap. Pt took off on own and had to find him wihtout oxygen, replaced with pt's preference the oxymask. Had to remind patient on 2 separate occasions after this to put oxygen on. Pt agreeable but does require frequent monitoring. Bed alarm on, [facility] who will resume care.
[2021-01-22 20:17] VITALS: PULSE 116
--- NOTE | 2021-01-22 21:48 | NUR ---
PT INCONTINENT OF URINE ON CLOTHING, BED AND FLOOR AFTER JUST OFFERINT URIANL. PT UNABLE TO MANAGE URINAL. ANXIOUS. GAVE XANAX EARLIER. PT HAS DIFFICULTY KEEPING O2 MASK ON. REQUIRES CLOSE MONITORING. CALL LIGHT IN REACH. BED ALARM SET.
--- NOTE | 2021-01-22 23:38 | NUR ---
PT DOES NOT LEAVE O2 MASK ON. CHECKED FREQUENTLY FOR PLACEMENT.
[2021-01-23 04:21] VITALS: BP 108/67; PULSE 110; TEMP 98.2
--- NOTE | 2021-01-23 06:42 | NUR ---
Report received from EMELY Ramos. Patient is sleeping in bed and is wearing oxy mask. Call light and bedside table are within reach. Will continue to monitor patient throughout shift.
--- NOTE | 2021-01-23 08:45 | NUR ---
Patient's SPO2 continues to decrease with activity. Patient was titrated from 8 lpm to 5.5 lpm because he was sustaining above 90%. When this nurse tranferred patient to bedside toilet, he desated to 76% so this nurse bumped him back to 8 lpm until patient went above 100% and then this nurse titrated patient back to 5.5 lpm where he maintained above 90%. Will continue to monitor patient throughout shift.
--- NOTE | 2021-01-23 09:29 | NUR ---
Contacted [facility] & spoke w/ Storm. Referral was made to re-evaluate pt for possible LTAC status due to decline in respiratory status. Faxed referral information.
--- NOTE | 2021-01-23 14:45 | NUR ---
Patient has completed all therapies for the day and is resting in bed. Patient denies pain at this time. Call light and bedside table are within in reach.
[2021-01-23 15:18] VITALS: BP 118/68; PULSE 100; TEMP 97.7
--- NOTE | 2021-01-23 16:26 | NUR ---
Pt's son, Basim, visiting pt. Visited w/ pt & son & provided them w/ an update about LTAC referrals. They did inquire about disability & SW recommended starting it. They were in agreeance & asked SW to contact the financal counselor. Told pt's son that SW would keep him updated regarding LTAC.
--- NOTE | 2021-01-23 19:20 | NUR ---
PT RESTING WITH O2 OXYMASK AT 7L. TALKING AND PICKING IN THE AIR HE SLEEPS. NOTED OCCASIONAL SLEEP APNEA. NO DISTRESS AT THIS TIME. CALL LIGHT IN REACH. BED ALARM SET.
--- NOTE | 2021-01-23 23:25 | NUR ---
PT TAKES OFF OXYMASK FREQUENTLY. CLOSELY MONITORING PT.
--- NOTE | 2021-01-24 00:58 | NUR ---
PT PULLED O2 MASK OFF. SET OFF BED ALARM. ASSISTED WITH URINAL. CHECKED O2 SAT 74%. O2 MASK BACK ON. O2 SAT UP TO 84% ON 10L. NOTIFIED RT.
--- NOTE | 2021-01-24 03:19 | NUR ---
RT PLACED BIPAP EARLIER. PT ANXIOUS AT FIRST. NOW KEEPING IT ON. SLEEPING.
[2021-01-24 05:31] VITALS: BP 112/68; PULSE 101; TEMP 98.5
--- NOTE | 2021-01-24 06:34 | NUR ---
PT HAS RESTING FAIRLY WELL THIS NIGHT. HAVING TO BE REMINDED TO KEEP O2 MASK ON FREQUENTLY THEN PT RETURNS TO SLEEP.
--- NOTE | 2021-01-24 10:06 | NUR ---
PT OUT WITH THERAPY IN WC. PT NEEDS HIGH FLOW O2 TO MAINTAIN SATS IN HIGH 80'S TO LOW 90'S. 84% ON INITIAL ASSESSMENT WITH NO O2. PT HAD OXYMASK BUT WAS NOT USING CORRECTLY.PLACED ON NC AND PT WAS ABLE TO INCREASE SATS TO 91.
[2021-01-24 16:22] VITALS: BP 92/59; PULSE 113; TEMP 98.1
--- NOTE | 2021-01-24 17:35 | NUR ---
PT AMBULATED TO BR HAD LG BM AND RETURNED TO BED WITH SBAX1.
--- NOTE | 2021-01-24 19:11 | NUR ---
RECEIVED CHANGE OF SHIFT REPORT FROM DAY SHIFT NURSE.
--- NOTE | 2021-01-24 23:03 | NUR ---
EXIT ALARMS ON WHEN IN BED OR UP IN CHAIR. OXYGEN CONTINUES PER HIGH FLOW CANNULA AT 12 LPM. DENIES CHEST PAIN/SOA AT SO FAR THIS SHIFT. DENIES ANY DISCOMFORT TO EXTREMTIES. CALL LIGHT WITHIN REACH. NEEDS ASSIST WITH REPOSITIONING ACTIVITIES BOTH IN BED AND OUT OF BED.
--- NOTE | 2021-01-24 23:21 | NUR ---
REFUSED OFFER OF XANAX FOR SLEEP, WANTED TYLENOL FOR SLEEP, SEE MAR FOR MED GIVEN.
--- NOTE | 2021-01-25 03:07 | NUR ---
OBSERVED PATIENT WITH HF NASAL CANNULA OFF FACE/NARES, REPLACED OXYGEN PROMPTLY. DENIES SOA AT THIS TIME. DENIES ANY OTHER NEEDS OR COMPLAINTS.
[2021-01-25 05:14] VITALS: BP 113/72; PULSE 101; TEMP 98.4
--- NOTE | 2021-01-25 06:54 | NUR ---
Report received from EMELY Daniels. Patient is sleeping in bed. Call light and bedside table are within reach. Will continue to monitor patient throughout shift.
--- NOTE | 2021-01-25 07:26 | NUR ---
CHANGE OF SHIFT REPORT GIVEN TO DAY SHIFT NURSE, KSENIA HAN.
--- NOTE | 2021-01-25 09:15 | NUR ---
Titrated patient's oxygen from 10 lpm to 5.5 lpm and patient's SPO2 is 93%. Will continue to monitor patient throughout shift.
--- NOTE | 2021-01-25 11:38 | NUR ---
Patient's SPO2 dropped to 56% with inactivity. Titrated patient back up to 10 lpm. Will continue to monitor patient throughout shift.
--- NOTE | 2021-01-25 13:30 | NUR ---
This nurse informed PANFILO Mariano patient was at 67% on 15 lpm and she informed me to contact Dr. Meraz, the oncall python consultant.
--- NOTE | 2021-01-25 13:44 | NUR ---
Changed patient's NC to face mask and patient's SPO2 is now 95%. Will continue to monitor patient throughout shift.
[2021-01-25 18:30] VITALS: BP 115/61; PULSE 118; TEMP 98.8
--- NOTE | 2021-01-25 19:20 | NUR ---
RECEIVED CHANGE OF SHIFT REPORT FROM DAY SHIFT NURSE.
--- NOTE | 2021-01-25 20:32 | NUR ---
PATIENT SOA WITH EXERTION, X1-2 CGA WITH OUT OF BED ACTIVITIES, DEPENDING ON AMOUNT OF FATIGUE PATIENT IS EXPERIENCING AND RESP EFFORT. EXIT ALARMS ON WHEN IN BED OR UP IN CHAIR, WITH CALL LIGHT WITHIN REACH. PICC LINE TO RUE IN PLACE AND IS PATENT. DENIES ANY OTHER NEEDS AT THIS TIME. PATIENT AGREEABLE TO WEAR BIPAP FOR SLEEP TONIGHT AT THIS TIME.
--- NOTE | 2021-01-26 01:47 | NUR ---
PATIENT HAS BEEN RESTLESS AT TIMES, INTERMITTENTLY TAKES OFF BIPAP MASK, IS NOT ORIENTED AT FIRST BUT RESPONDS AND IS COOPERATIVE TO HAVING BIPAP PLACED BACK ON BUT NOW WILL ONLY ALLOW OXIMASK ON, O2 SAT BET 90 -91% ON 10L, DECREASED OX TO 8L W/SAT TO 90 - 92%. REPOSITIONED PATIENT ONTO RIGHT SIDE FROM LEFT SIDE.
--- NOTE | 2021-01-26 03:24 | NUR ---
PATIENT CURRENT ON BIPAP AFTER AGREEING TO WEAR IT WHEN FOUND WITH OXYMASK OFF FACE AND OX SAT AT 76%. CURRENT OX SAT READING 90s TO 92%. RESTING WITH EYES CLOSED CURRENTLY. BED ALARM ON WITH CALL LIGHT WITHIN REACH.
--- NOTE | 2021-01-26 03:43 | NUR ---
RECEIVED PATIENT FROM ER VIA CART, TOLERATED TRANSFER FROM CART TO BED WITH COMPLAINT OF PAIN WITH MOVEMENT.
[2021-01-26 04:16] VITALS: BP 121/78; PULSE 96; TEMP 98.2
--- NOTE | 2021-01-26 06:53 | NUR ---
Report received from EMELY Daniels. Patient is sleeping in bed. Call light and bedside table are within reach. Will continue to monitor patient throughout shift.
--- NOTE | 2021-01-26 07:11 | NUR ---
CHANGE OF SHIFT REPORT GIVEN TO DAY SHIFT NURSE, KSENIA HAN.
--- NOTE | 2021-01-26 15:04 | NUR ---
Patient is sleeping in bed. Patient had a good visit with daughter this morning. Patient's SATs have been stable today maintaining at or around 92%. Patient has also been using spirometer. Call light and bedside table are within reach.
[2021-01-26 18:00] VITALS: BP 123/70; PULSE 109; TEMP 98.2
--- NOTE | 2021-01-26 19:22 | NUR ---
RECEIVED CHANGE OF SHIFT REPORT FROM DAY SHIFT NURSE. EXIT ALARMS ON WHEN UP CHAIR OR IN BED. CALL LIGHT WITHIN REACH.
[2021-01-27 04:32] VITALS: BP 130/77; PULSE 102; TEMP 98.5
--- NOTE | 2021-01-27 07:02 | NUR ---
CHANGE OF SHIFT REPORT GIVEN TO DAY SHIFT NURSE, LORRAINE HAN. PATIENT MAINTAINED WEARING OXYMASK THROUGHOUT THE NIGHT. DENIED CHEST PAIN/SOA AND NUMBNESS/TINGLING TO EXTREMITIES THIS SHIFT. EXIT ALARMS IN USE WHEN IN BED OR UP IN CHAIR WITH CALL LIGHT WITHIN REACH.
--- NOTE | 2021-01-27 07:09 | NUR ---
shift report received from EMELY Alfonso
--- NOTE | 2021-01-27 07:30 | NUR ---
resting in bed, full assessment completed, see interventions for furtherinfo, is ble to move from side to side without difficulty, breakfast has been ordered, denies needs at this time
--- NOTE | 2021-01-27 09:12 | NUR ---
had breakfast and tolerated well, now resting in bed watching TV, O2 on at 5.5L/oxymask
--- NOTE | 2021-01-27 10:44 | NUR ---
out of room and working with physical therapy
--- NOTE | 2021-01-27 11:31 | NUR ---
back from therapy and resting in bed
--- NOTE | 2021-01-27 13:04 | NUR ---
occupational therapy in to work with patient
--- NOTE | 2021-01-27 14:19 | NUR ---
Contacted Yamila, Financal Counselor, & requested assistance for Medicaid application. Was informed they would take a look into it.
--- NOTE | 2021-01-27 16:24 | NUR ---
remains resting in bed wiwth TV on
[2021-01-27 17:30] VITALS: BP 106/56; PULSE 116; TEMP 98.4
--- NOTE | 2021-01-27 19:11 | NUR ---
shift report given to EMELY machuca
[2021-01-28 05:40] VITALS: BP 116/60; PULSE 93; TEMP 97.8
--- NOTE | 2021-01-28 07:11 | NUR ---
Report received from EMELY Estrada. Patient is sleeping in bed and has pulled off oxy mask. Patient states he did not sleep well because of the noise. Call light and bedside table are within reach. Will continue to monitor throughout shift.
--- NOTE | 2021-01-28 08:33 | NUR ---
Received voice message from Storm cornell/ [facility]. Informed SW that [facility] insurance team would not persue insurance auth, as they felt pt did not qualify.
--- NOTE | 2021-01-28 09:26 | NUR ---
Visited w/ pt, who stated he is doing alright but has not been sleeping very well. Explained that he has Melatonin & Xanax if needed. He did state that he took the Melatonin but not the Xanax. Encouraged him to ask for the Xanax to help him relax. He did tell SW that Basim brought some paperwork in. Reviewed the paperwork from [facility], which stated pt's Short Term Disability is good through 01/15/21 to 02/15/21 & that his FMLA will be exhausted on 02/02/21. Made a copy & told pt, SW will contact his son. Pt had no other questions or concerns at this time.
--- NOTE | 2021-01-28 15:13 | NUR ---
Patient has completed all therapies for the day and is resting in bed. Patient denies pain at this time. Call light and bedside table are within reach.
--- NOTE | 2021-01-28 15:16 | NUR ---
Patient is currently on 8 lpm via oxy mask and is maintaining at or above 90%. Will continue to monitor throughout the shift.
[2021-01-28 16:34] VITALS: BP 126/82; PULSE 406; TEMP 97.7
--- NOTE | 2021-01-28 19:40 | NUR ---
Initial shift assessment done- Pleasant, talkative, states coughing at times, non productive, o2 at 8L/oxymask- just wants a vanilla ice cream at this time,, urinal emptied of 300cc yellow urine, states will really try tonight to wear the Bipap most of the night
[2021-01-29 00:15] VITALS: PULSE 102
--- NOTE | 2021-01-29 00:23 | NUR ---
States he cant sleep- states turning side to side, tolerated the Bipap until 2300 last night then couldnt "take it anymore", now on 8L per oxymask,, checked o2 sat at this time 98%,, will give Xanax as ordered at this time, pt very appreciative
--- NOTE | 2021-01-29 02:00 | NUR ---
Bed alarm going off- pt sitting at edge of bed-states he needs to go to the bathroom really fast--helped up to BSC- voided good amount and had lots of gas with small amount loose stool- back to bed, has SOB with any exertion- o2 remains at 8L/oxymask, no other requests-hopes to sleep till morning.
--- NOTE | 2021-01-29 04:38 | NUR ---
Has been sleeping well for the past 1-2hours.
[2021-01-29 05:41] VITALS: BP 123/74; PULSE 113; TEMP 97.9
--- NOTE | 2021-01-29 06:30 | NUR ---
Report received from EMELY Corey. Patient is sleeping in bed. Patient did not have mask on. This nurse put mask back on patient. Call light and bedside table are within reach. Will continue to monitor patient throughout shift.
--- NOTE | 2021-01-29 12:15 | NUR ---
Patient had a reoccurring episode of diarrhea as soon as he took a bite of his meal; given 2mg of lopermide. Patient denies N/V and states the onset comes on almost immediately.
--- NOTE | 2021-01-29 14:30 | NUR ---
Patient had another episode of diarrhea while taking a shower with OT. Administered another 2 mg of loperamide. Will continue to monitor throughout shift.
--- NOTE | 2021-01-29 14:43 | NUR ---
Patient has completed all therapies for the day and is resting in the recliner. Patient denied pain at this time and is currently on 5.5 lpm via oxy mask and is maintaining SATs above 90%. Call light and bedside table are within reach. Will continue to monitor throughout shift.
--- NOTE | 2021-01-29 14:55 | NUR ---
Reviewed the team conference notes w/ pt. He stated he understood & agreed w/ current level of functioning. Informed him that insurance denied LTAC, so the plan is to continue to work w/ him here & re-evaluate next 02/05/21. He stated he was fine w/ this. Contacted pt's son, Basim, & provided him w/ update from the team conference. He was fine with the plan. We did talk about doing a family meeting next week on Wednesday. He told SW that he would see what his work schedule is like & get back w/ SW.
--- NOTE | 2021-01-29 17:00 | NUR ---
Patient had another episode of watery diarrhea. Administered 2mg of loperamide
[2021-01-29 17:30] VITALS: BP 105/70; PULSE 117; TEMP 98.7
--- NOTE | 2021-01-29 19:30 | NUR ---
RECEIVED CHANGE OF SHIFT REPORT FROM DAY SHIFT NURSE.
--- NOTE | 2021-01-29 23:30 | NUR ---
PATIENT SLEEPING, DOES NOT WAKE WHEN ROOM IS ENTERED BY STAFF ON ROUNDS. OXYMASK STAYING IN PLACE OVER PATIENT'S NOSE/MOUTH SO FAR THIS SHIFT, EVEN WITH PATIENT'S TURNING FROM SIDE TO SIDE INDEPENDENTLY. EXIT ALARMS ON WHEN IN BED WITH CALL LIGHT WITHIN REACH.
--- NOTE | 2021-01-30 03:14 | NUR ---
NO COMPLAINTS OF CHEST PAIN/SOA AND DENIES NUMBNESS/TINGLING TO EXTREMITIES THIS SHIFT.
[2021-01-30 04:53] VITALS: BP 125/73; PULSE 100; TEMP 98.2
--- NOTE | 2021-01-30 06:47 | NUR ---
REQUESTED AND GIVEN TYLENOL FOR C/O LEFT KNEE DISCOMFORT. SEE MAR FOR TIME OF DOSING. CALL LIGHT WITHIN REACH, EXIT ALARM ON WHILE IN BED. OXYMASK IN PLACE, ENCOURAGED PATIENT TO KEEP PERFORMING IS EXERCISES THROUGHOUT DAY. DENIES ANY OTHER NEEDS.
--- NOTE | 2021-01-30 07:43 | NUR ---
CHANGE OF SHIFT REPORT GIVEN TO DAY SHIFT NURSE, RACHEL HAN.
--- NOTE | 2021-01-30 09:24 | NUR ---
Attempted to contact Nata Nobles, Telephone Interceptor Operator, at [facility], in regards to pt's Short term Disability & FMLA. Left message requesting a call back to help pt process an extention to his short term disability & FMLA.
[2021-01-30 16:51] VITALS: BP 110/60; PULSE 103; TEMP 97.9
--- NOTE | 2021-01-30 20:25 | NUR ---
PT TALKATIVE TONIGHT. A&O. FOCUSED ON FOOD. PROVIDED SANDWICH BOX. O2 3L N/C. HAS SOME NONPRODUCTIVE COUGHING AT TIMES. NO PAIN. CALL LIGHT IN REACH BED ALARM SET.
--- NOTE | 2021-01-30 21:00 | NUR ---
O2 SAT 86%. O2 INCREASED TO 7L. NOW 91%
[2021-01-31 05:48] VITALS: BP 131/93; PULSE 116; TEMP 98.3
[2021-01-31 07:26] LABS: CALCIUM 8.4 mg/dL (8.4-10.2); CREATININE, serum 0.43 (0.66-1.25); MAGNESIUM 1.8 mg/dL (1.6-2.3); POTASSIUM 3.8 mmol/L (3.4-5.0)
[2021-01-31 07:28] LABS: BASO # 0.1 (0.0-0.2); BASO % 0.8 % (0.0-2.0); EOS # 0.1 (0.0-0.7); GRAN # 4.4 (1.4-6.5); LYMPH # 0.9 (1.2-3.4); LYMPH % 15.6 % (20.0-51.0); MEAN CELL VOLUME 99 fl (80.0-100.0); MEAN CORPUSCULAR HEMOGLOBIN 32 pg (27.0-31.0); MEAN CORPUSCULAR HGB CONC 32 g/dl (33.0-37.0); MEAN PLATELET VOLUME 10.1 fl (7.4-10.4); MONO # 0.5 (0.1-0.6); MONO % 7.8 % (1.7-9.3); PLATELET COUNT 425 K/mm3 (130-400); RED BLOOD COUNT 3.17 M/mm3 (4.20-5.60); REDCELL DISTRIBUTION WIDTH-CV 14.9 % (11.5-14.5)
[2021-01-31 07:31] LABS: HEMATOCRIT 31.4 % (42.0-52.0)
[2021-01-31 16:26] VITALS: BP 105/74; PULSE 115; TEMP 98
--- NOTE | 2021-01-31 21:30 | NUR ---
Patient laying in bed upon enter the room. Patient alert and oriented. Patient currently on 5L oxygen via HF NC. Patient denies SOB or dyspnea. Denies pain or discomfort at this time. Non-productive cough noted. All scheduled meds given per JUL. Call light in reach. Bed alarms on. Will continue to monitor.
[2021-02-01 04:02] VITALS: BP 111/67; PULSE 80; TEMP 98.4
[2021-02-01 14:46] VITALS: PULSE 145
[2021-02-01 16:45] VITALS: BP 104/61; PULSE 125; TEMP 100.7
--- NOTE | 2021-02-01 21:00 | NUR ---
PT RESTING IN BED WITH O2 NC IN PLACE. NO RESP DISTRESS AT THIS TIME. ENC PT TO KEEP NC ON.M PT AGREED. CALL LIGHT IN REACH. BED ALARM SET.
[2021-02-01 22:14] VITALS: PULSE 99; TEMP 98.2
--- NOTE | 2021-02-02 04:22 | NUR ---
PT RESTING WELL TONIGHT AND KEEPING NC IN PLACE. NO RESP DISTRESS.
[2021-02-02 05:00] VITALS: BP 92/57; PULSE 113; TEMP 98.5
--- NOTE | 2021-02-02 10:49 | NUR ---
Pt resting in bed with eyes closed, even non labored breathing. Bed alarm on
--- NOTE | 2021-02-02 17:08 | NUR ---
Pt has done well today. Uses the call light when needing to get up. Does well with standby with hold of gait belt. Pt does use the urinal some while in bed. Minimal to no pain complaints, only complaint is occasional back pain. Pt did sit up in the chair off and on throughout the day.
[2021-02-02 17:11] VITALS: BP 97/59; PULSE 114; TEMP 99.4
[2021-02-02 20:06] VITALS: TEMP 97.6
--- NOTE | 2021-02-02 20:08 | NUR ---
PT C/O SORE THROAT WITH SWALLOWING. THROAT SL RED. DENIES NEED FOR TYLENOL AT THIS TIME.
--- NOTE | 2021-02-02 22:01 | NUR ---
PT RESTING QUIETLY. NO DISTRESS. KEEPING NC IN PLACE.
[2021-02-03 05:11] VITALS: BP 91/52; PULSE 112; TEMP 98.1
--- NOTE | 2021-02-03 06:46 | NUR ---
Report received from EMELY Ramos. Patient is sleeping in bed. Call light and bedside table are within reach. Will continue to monitor patient throughout shift.
--- NOTE | 2021-02-03 13:06 | NUR ---
Discrepency between weights may be d/t how patient was weighed. On 01/30/21, patient was weighted on bed scale and weighed 132. On 02/03/21, patient was weighed on standing scale at 105.8 kg.
--- NOTE | 2021-02-03 14:15 | NUR ---
SW met with the patient to introduce oneself and to follow up after the weekend. The patient states that he is not going so good today, but that is ready to get home. He states that he has been in hospitals a few months now and looking forward to going home. The patient lives alone in [place]. He states that his son, Basim, lives in [place]; but states that he is in [place] 3 days a week. SW to continue to follow.
--- NOTE | 2021-02-03 15:07 | NUR ---
Patient has completed all therapies for the day and is resting in bed. Call light and bedside table are within reach.
[2021-02-03 17:05] VITALS: BP 90/52; PULSE 111; TEMP 99.3
--- NOTE | 2021-02-03 19:30 | NUR ---
RECEIVED CHANGE OF SHIFT REPORT FROM DAY SHIFT NURSE. EXIT ALARMS ON WHEN IN BED. PATIENT RESTING IN BED DURING REPORT WITH OXYGEN IN PLACE TO NARES PER NASAL CANNULA. CALL LIGHT WITHIN REACH.
--- NOTE | 2021-02-04 00:36 | NUR ---
PATIENT COUGHING, SEE MAR FOR MEDS GIVEN. PATIENT DENIES ANY NEEDS OR DISCOMFORT AT THIS TIME. CONTINUES WITH OXYGEN PER NASAL CANNULA. CALL LIGHT WITHIN REACH.
[2021-02-04 04:48] VITALS: BP 97/53; PULSE 115; TEMP 99.8
--- NOTE | 2021-02-04 06:18 | NUR ---
DENIED ANY NEEDS OR COMPLAINTS WHEN AWAKENED FOR VITALS CHECK EARLIER. OXYGEN CONTINUES PER NASAL CANNULA. CALL LIGHT WITHIN REACH. BREATHING NONLABORED AND EVEN WHEN SLEEPING.
--- NOTE | 2021-02-04 07:10 | NUR ---
CHANGE OF SHIFT REPORT GIVEN TO DAY SHIFT NURSE, GM HAN.
--- NOTE | 2021-02-04 08:18 | NUR ---
PT working with pt at this time
--- NOTE | 2021-02-04 13:23 | NUR ---
Pt doing well working with therapy throughout the morning. Still having complaints that he is not able to taste things. No pain complaints.
[2021-02-04 16:31] VITALS: BP 112/69; PULSE 106; TEMP 98
--- NOTE | 2021-02-04 17:45 | NUR ---
Pt sat up in recliner most of the afternoon. Denied any pain or concerns. O2 down to 4L via NC. Laying in bed at this time. Call quinonez in place, bed alarm on.
--- NOTE | 2021-02-04 19:14 | NUR ---
RECEIVED CHANGE OF SHIFT REPORT FROM DAY SHIFT NURSE. RESTING IN BED, EXIT ALARM ON WHEN IN BED WITH CALL LIGHT IN PLACE. OBSERVED PATIENT TALKING ON PHONE DURING REPORT.
--- NOTE | 2021-02-05 02:40 | NUR ---
SLEEPING, DOES NOT WAKE WHEN STAFF ENTER ROOM ON ROUNDS. BREATHING NONLABORED AND EVEN, OXYGEN CONTINUES PER NASAL CANNULA. CALL LIGHT WITHIN REACH.
[2021-02-05 04:58] VITALS: BP 104/64; PULSE 123; TEMP 100.3
[2021-02-05 06:39] VITALS: TEMP 98.5
--- NOTE | 2021-02-05 06:42 | NUR ---
Report received from EMELY Daniels. Patient is sleeping in bed. Call light and bedside table are within reach. Will continue to monitor throughout shift.
--- NOTE | 2021-02-05 07:29 | NUR ---
CHANGE OF SHIFT REPORT GIVEN TO DAY SHIFT NURSE, KSENIA HAN.
--- NOTE | 2021-02-05 16:04 | NUR ---
FELIPE met with the patient to present and review the IPR Team Conference Note. FELIPE discussed how the team has set a tentative d/c date for next Wednesday, 02/14, with home health PT/OT. The patient was in agreement to the plan. FELIPE provided him with Medicare.gov's list of home health agencies that serve [place]. The team is also recommending a FWW and home oxygen. FELIPE informed him of the different DME companies. The patient was agreeable with getting the FWW and oxygen from [facility]. A tub transfer bench is also being recommended. FELIPE informed him where he could purchase one. The patient reports that his daughter, Angie, will be staying with him for the first two weeks when he returns home. He states that his son, Basim, will also be staying nights with him on //.
[2021-02-05 17:13] VITALS: BP 114/69; PULSE 112; TEMP 97.7
--- NOTE | 2021-02-05 19:00 | NUR ---
RECEIVED CHANGE OF SHIFT REPORT FROM DAY SHIFT NURSE. EXIT ALARM ON WITH PATIENT RESTING IN BED DURING REPORT. CALL LIGHT WITHIN REACH. DENIES ANY NEEDS AT TIME OF REPORT. OXYGEN CONTINUES PER NC. DENIES CHEST PAIN/SOA AT THIS TIME. PATIENT INFORMED OF SPECIMEN NEEDED FOR UA THAT PATIENT VERBALIZED UNDERSTANDING OF TESTING.
[2021-02-06 00:30] LABS: HEMATOCRIT 28.9 % (42.0-52.0); HEMOGLOBIN 9.3 g/dl (13.5-18.0); MEAN CELL VOLUME 96 fl (80.0-100.0); MEAN CORPUSCULAR HEMOGLOBIN 31 pg (27.0-31.0); MEAN CORPUSCULAR HGB CONC 32 g/dl (33.0-37.0); PLATELET COUNT 196 K/mm3 (130-400); RED BLOOD COUNT 3.01 M/mm3 (4.20-5.60); REDCELL DISTRIBUTION WIDTH-CV 14.9 % (11.5-14.5)
[2021-02-06 00:43] LABS: CALCIUM 8.3 mg/dL (8.4-10.2); CREATININE, serum 0.44 (0.66-1.25); POTASSIUM 4.1 mmol/L (3.4-5.0)
[2021-02-06 02:30] VITALS: TEMP 101.5
--- NOTE | 2021-02-06 02:39 | NUR ---
PATIENT C/O FEELING HOT AND CHILLS, TEMP CHECKED AT 101.5 WITH RT PRESENT,CHECK O2 SAT AT 84% ON 4 L, OX INCREASED PER RT TO 6L.
[2021-02-06 03:43] VITALS: BP 110/60; PULSE 127; TEMP 98
--- NOTE | 2021-02-06 07:39 | NUR ---
CHANGE OF SHIFT REPORT GIVEN TO DAY SHIFT NURSE, KSENIA HAN.
--- NOTE | 2021-02-06 14:35 | NUR ---
Patient has completed all therapies for the day and is resting in bed. Call light and bedside table are within reach.
--- NOTE | 2021-02-06 16:08 | NUR ---
SW met with the patient to discuss setting up a patient/family meeting. The patient reports that his son is coming up tonight and he will check to see if he is available on Wednesday or Wednesday for the patient/family meeting. SW to follow up with the patient tomorrow.
[2021-02-06 17:00] VITALS: BP 113/51; PULSE 113; TEMP 98.7
--- NOTE | 2021-02-06 20:00 | NUR ---
PT RESTING IN BED. WATCHING TV. DENIES PAIN AT THIS TIME. NO RESP DISTRESS. HAS OCCASIONAL NONPRODUCTIVE COUGH. HUMIDIFIED O2 AT 6 L/NC. CALL LIGHT IN REAch bed alarm on.
[2021-02-06 23:41] VITALS: TEMP 102.4
[2021-02-06 23:41] LABS: COLLECTION METHOD CLEAN CATCH
--- NOTE | 2021-02-06 23:42 | NUR ---
NOTIFIED LEO BURTON REGARDING 102.4 ORAL TEMP. WAITING RESULTS OF UA.
--- NOTE | 2021-02-06 23:43 | NUR ---
NEW ORDER FOR BLOOD CULT. LAB NOTIFIED.
[2021-02-06 23:50] LABS: MUCOUS Present /lpf; PH 6 (5-8); SQUAMOUS EPITHELIAL None Seen /hpf; URINE APPEARANCE Clear; URINE BACTERIA None Seen /hpf; URINE BILIRUBIN Negative (NEGATIVE); URINE BLOOD Negative (NEGATIVE); URINE COLOR Yellow; URINE GLUCOSE Negative (NEGATIVE); URINE KETONE Negative (NEGATIVE); URINE LEUKOCYTE ESTERASE Negative (NEGATIVE); URINE NITRATE Negative (NEGATIVE); URINE PROTEIN(semi-quant) Negative (NEGATIVE); URINE RBC 0-2 /hpf; URINE UROBILINOGEN Negative (NEGATIVE)
--- NOTE | 2021-02-07 00:21 | NUR ---
GAVE TYLENOL AFTER BLOOD CULTURE OBTAINED. UA NEG.
[2021-02-07 01:00] VITALS: TEMP 98.6
[2021-02-07 03:46] VITALS: BP 90/59; PULSE 116; TEMP 98.4
--- NOTE | 2021-02-07 07:30 | NUR ---
PATIENT ORIENTED BUT DROWSY THIS AM. DURING AM ASSESSMENT, NURSING FOUND THE PATIENT'S PICC LINE ON THE ROOM FLOOR. PATIENT DID NOT REMEMBER PULLING HIS PICC LINE OUT. ENVIRONMENTAL MARKETING REPRESENTATIVE REPORTED PATIENT SPIKED A FEVER OF 102.4 AROUND 2300. ENVIRONMENTAL MARKETING REPRESENTATIVE WAS UNAWARE PATIENT HAD PULLED HIS PICC LINE OUT. AIVS NOTIFIED. SEE NEW ORDER FOR I.D. CONSULT. PATIENT IS CURRENTLY AFEBRILE AND VSS. DENIES PAIN, FEVER OR NAUSEA AT THIS TIME. HEAD TO TOE ASSESSMENT COMPLETE, SEE CHARTING. AM MEDS GIVEN. NO OTHER NEEDS. CALL LIGHT IN REACH.
--- NOTE | 2021-02-07 08:30 | NUR ---
LAB AT BEDSIDE. RESPIRATORY PANEL OBTAINED AND ALSO SENT TO LAB
--- NOTE | 2021-02-07 09:30 | NUR ---
Advised by therapy staff PICC found on floor this am. 47 cm catheter in trash. 4 x 4 and tegaderm applied to previous PICC site.
--- NOTE | 2021-02-07 10:07 | NUR ---
RADIOLOGY AT BEDSIDE TO OBTAIN CXR.
[2021-02-07 10:45] VITALS: BP 105/65; PULSE 111; TEMP 97.7
--- NOTE | 2021-02-07 10:45 | NUR ---
ROUNDING, SEE ORDERS.
--- NOTE | 2021-02-07 11:07 | NUR ---
Shefali, [facility] Director, notified SW that she spoke to the patient's son and the patient/family meeting has been scheduled on Wednesday, 02/10, at 1530. The patient's daughter plans to attend by phone.
[2021-02-07 11:34] LABS: BASO % 0.3 % (0.0-2.0); EOS # 0.1 (0.0-0.7); EOS % 0.8 % (0-4.0); GRAN # 8.5 (1.4-6.5); GRAN % 76.7 % (42.2-75.2); LYMPH # 1.6 (1.2-3.4); MEAN CORPUSCULAR HGB CONC 30 g/dl (33.0-37.0); MEAN PLATELET VOLUME 10.8 fl (7.4-10.4); MONO # 0.9 (0.1-0.6); MONO % 7.7 % (1.7-9.3); PLATELET COUNT 242 K/mm3 (130-400); RED BLOOD COUNT 2.94 M/mm3 (4.20-5.60); REDCELL DISTRIBUTION WIDTH-CV 15.4 % (11.5-14.5)
[2021-02-07 11:36] LABS: HEMATOCRIT 29.6 % (42.0-52.0); MEAN CELL VOLUME 101 fl (80.0-100.0); MEAN CORPUSCULAR HEMOGLOBIN 31 pg (27.0-31.0)
[2021-02-07 11:38] LABS: ALBUMIN 1.9 gm/dL (3.4-4.8); BILIRUBIN,TOTAL 0.4 mg/dL (0.2-1.2); CALCIUM 8.9 mg/dL (8.4-10.2); CREATININE, serum 0.64 mg/dL (0.72-1.25); POTASSIUM 3.9 mmol/L (3.5-4.5)
[2021-02-07 18:00] VITALS: BP 120/58; BP 151/92; PULSE 108; PULSE 83; TEMP 97.8
[2021-02-07 20:08] VITALS: BP 106/56; PULSE 58; TEMP 98.3
[2021-02-08 05:39] VITALS: BP 111/69; PULSE 100; TEMP 97.9
--- NOTE | 2021-02-08 06:58 | NUR ---
Report received by EMELY Barger. Patient is sleeping in bed. Call light and bedside table are within reach. Will continue to monitor patient throughout shift.
--- NOTE | 2021-02-08 14:49 | NUR ---
Patient is resting in bed. Cough has subsided since this nurse gave him Guaifenesin. Patient denies pain at this time. Call light and bedside table are within reach.
[2021-02-08 16:40] VITALS: BP 112/67; PULSE 88; TEMP 97.9
--- NOTE | 2021-02-08 23:13 | NUR ---
Patient alert and oriented. Patient denies any pain or discomfort. Denies SOB or dyspnea. All scheduled meds given per JUL. Call light in reach. Patient denies any needs at this time.
[2021-02-09 04:14] VITALS: BP 127/78; PULSE 60; TEMP 97.6
--- NOTE | 2021-02-09 06:52 | NUR ---
Report received from EMELY Fleming. Patient is sleeping in bed. Call light and bedside table are within reach. Will continue to monitor patient throughout shift.
[2021-02-09 08:46] LABS: BASO % 0.5 % (0.0-2.0); EOS # 0.3 (0.0-0.7); EOS % 3.8 % (0-4.0); GRAN # 5.7 (1.4-6.5); GRAN % 68.1 % (42.2-75.2); LYMPH # 1.7 (1.2-3.4); LYMPH % 20.2 % (20.0-51.0); MEAN CELL VOLUME 97 fl (80.0-100.0); MEAN CORPUSCULAR HGB CONC 32 g/dl (33.0-37.0); MEAN PLATELET VOLUME 9.7 fl (7.4-10.4); MONO # 0.5 (0.1-0.6); PLATELET COUNT 299 K/mm3 (130-400); RED BLOOD COUNT 3.23 M/mm3 (4.20-5.60)
[2021-02-09 08:50] LABS: HEMATOCRIT 31.2 % (42.0-52.0); HEMOGLOBIN 9.9 g/dl (13.5-18.0); MEAN CORPUSCULAR HEMOGLOBIN 31 pg (27.0-31.0)
[2021-02-09 09:06] LABS: C-REACTIVE PROTEIN 6.4 mg/dL (0.00-0.50); CALCIUM 8.8 mg/dL (8.4-10.2); CREATININE, serum 0.59 mg/dL (0.72-1.25); POTASSIUM 3.9 mmol/L (3.5-4.5); URIC ACID 3.6 mg/dL (3.5-7.2)
[2021-02-09 09:21] LABS: ERYTHROCYTE SEDIMENTATION RATE > 140 mm/hr (0-30)
--- NOTE | 2021-02-09 09:42 | NUR ---
Patient c/o pain in right wrist. Patient states pain is 9/10 and is still hurting. Patient is A & O x 4 and states he reported pain last evening in the right wrist and the pain in the left wrist is not as bad. This nurse examined right wrist and patient has a red spot on medial right side of wrist. R/O gout. This nurse administered Colcrys. Call light and bedside table are within reach. Will continue to monitor patient.
[2021-02-09 18:03] VITALS: BP 122/74; PULSE 106; TEMP 98.2
--- NOTE | 2021-02-09 19:15 | NUR ---
RECEIVED CHANGE OF SHIFT REPORT FROM DAY SHIFT NURSE. CONTACT ISOLATION CONTINUES. EXIT ALARM ON WHEN IN BED, WITH CALL LIGHT WITHIN REACH. DENIES CHEST PAIN/SOA AT TIME OF REPORT WITH INTERMITTENT COUGHING OBSERVED. DENIES NUMBNESS/TINGLING TO EXTREMITIES AT THIS TIME.
[2021-02-10 05:02] VITALS: BP 134/71; PULSE 102; TEMP 97.9
--- NOTE | 2021-02-10 07:21 | NUR ---
CHANGE OF SHIFT REPORT GIVEN TO DAY SHIFT NURSE, RYAN HAN.
--- NOTE | 2021-02-10 15:52 | NUR ---
SW attended the patient/family meeting. The patient's son, Basim, and [id number] were at bedside. Also present was IPR Director, PT, & OT. IPR Director started by explaining the purpose of the meeting. PT/OT/ST then discussed the patient's progress so far and how a discharge date has been set for this Wednesday with home health. The patient and his family were in agreement to the plan. The team answered all questions. SW to follow up with the patient on a home health preference.
[2021-02-10 17:56] VITALS: BP 127/61; PULSE 112; TEMP 99.3
--- NOTE | 2021-02-10 18:39 | NUR ---
RECEIVED CHANGE OF SHIFT REPORT FROM DAY SHIFT NURSE. OXYGEN CONTINUES PER NC WITH NO REPORTED INCREASED SOA DURING REPORT. CALL LIGHT WITHIN REACH.
--- NOTE | 2021-02-10 18:48 | NUR ---
Patient did well today. Sat up in the chair most the morning. Went back to bed in the afternoon. His only complaints of pain is to his right wrist from the gout. No other changes at this time. Call light within reach.
--- NOTE | 2021-02-10 19:29 | NUR ---
DENIES CHEST PAIN/SOA AT THIS TIME, DENIES NUMBNESS/TINGLING TO EXTREMITIES AT THIS TIME. REQUESTED AND GIVEN COUGH MEDICINE LIQUID AND PRN GOUT MEDICINE, SEE MAR FOR MEDS/DOSE GIVEN. OXYGEN CONTINUES PER NASAL CANNULA AT THIS TIME WITH CALL LIGHT WITHIN REACH. REPORTS COUGH HAS BEEN NONPRODUCTIVE.
--- NOTE | 2021-02-11 01:31 | NUR ---
REQUESTED AND GIVEN COUGH MEDS, SEE MAR FOR MED GIVEN WITH OBSERVED COUGHING EPISODE UPON WAKING AT THIS TIME. DENIES ANY OTHER NEEDS OR COMPLAINTS AT THIS TIME. CALL LIGHT WITHIN REACH.
[2021-02-11 04:54] VITALS: BP 117/51; PULSE 104; TEMP 98.1
--- NOTE | 2021-02-11 05:44 | NUR ---
REQUESTED/GIVEN PRN MED FOR GOUT PAIN TO RIGHT ULNAR LOWER FOREARM. SEE MAR FOR TIME GIVEN.
--- NOTE | 2021-02-11 06:50 | NUR ---
CHANGE OF SHIFT REPORT GIVEN TO DAY SHIFT NURSE, IRIS HAN.
--- NOTE | 2021-02-11 15:25 | NUR ---
FELIPE met with the patient to follow up on home health preference. The patient did not have a preference and was open for FELIPE to send a referral to any agency. He was agreeable for FELIPE to try [facility]. FELIPE attempted to contact Suzie at [facility]. FELIPE left her a voicemail and faxed over the referral. Awaiting screen. The patient's PCP was Dr. Puga and he is now retired. FELIPE addressed this with the patient. The patient reports that he believes Francisca RN with Dr. Puga had referred him to someone, but is unsure of where. FELIPE contacted Dr. Hollingsworth and Dr. Myers's office. The printed circuit board panels plater reports that Francisca is no longer at that clinic. She left when Dr. Puga did. The printed circuit board panels plater reports that they do not have anything on file for where the patient could have been referred to. FELIPE updated the patient. The patient was open to getting set up at a new clinic. FELIPE contacted [facility] and secured the patient an appointment there with Dr. Jose J Sung on Wednesday, 02/21, at 1030 AM. FELIPE notified the community service organization director of the appointment. FELIPE updated the patient on the above. The printed circuit board panels plater plans to email their New Patient Forms to this SW. FELIPE to provide the forms to the patient. FELIPE will need to fax the patient's records and orders to [facility] at [phone].
[2021-02-11 16:30] VITALS: BP 116/71; PULSE 98; TEMP 98.2
--- NOTE | 2021-02-11 18:29 | NUR ---
REPORT TO RENÉE HAN
--- NOTE | 2021-02-11 19:00 | NUR ---
RECEIVED CHANGE OF SHIFT REPORT FROM DAY SHIFT NURSE.
--- NOTE | 2021-02-11 20:30 | NUR ---
DENIES CHEST PAIN/SOA/NAUSEA AT THIS TIME. DENIES NUMBNESS/TINGLING TO EXTREMITIES AT THIS TIME. EXIT ALARMS ON WHEN IN BED WITH CALL LIGHT WITHIN REACH. OXYGEN CONTINUES PER NC AT 4 LPM. REQUESTED COUGH MEDICINE WHEN NEXT AVAILABLE.
[2021-02-12 05:55] VITALS: BP 128/69; PULSE 102; TEMP 98.1
--- NOTE | 2021-02-12 07:27 | NUR ---
CHANGE OF SHIFT REPORT GIVEN TO DAY SHIFT NURSE, KSENIA HAN.
--- NOTE | 2021-02-12 08:42 | NUR ---
Suzie, at [facility], left a message with this SW and reports that they are in-network with the patient's insurance and that he would be covered at 100% as long as he qualifies for home health. She reports that they are able to accept the patient for services. SW to update the patient.
--- NOTE | 2021-02-12 15:41 | NUR ---
FELIPE met with the patient to present and review the IPR Team Conference. FELIPE reviewed the d/c plan for this Wednesday with home health PT/OT. FELPIE informed him how [facility] is able to accept him for services. The patient is agreeable to the plan. FELIPE provided the patient with the new patient forms for [facility] and informed him how he will need to fill them out prior to his appointment with Dr. Sung. The patient verbalized understanding.
[2021-02-12] MEDS ORDERED: PROAIR HFA0.09 MG/AC IH (15:45)
[2021-02-12] MEDS ORDERED: FLONASE NASAL S16 GM NS (15:46)
[2021-02-12] MEDS ORDERED: ROBITUSSIN DM 105 ML PO (15:47)
[2021-02-12 17:38] VITALS: BP 136/73; PULSE 107; TEMP 98.2
--- NOTE | 2021-02-12 22:08 | NUR ---
ALERT AND OX4. DENIES SOA, CHEST PAIN OR DIZZY. PM MEDS GIVEN ALONG W PRN ROBTUSSIN FOR COUGH. IV FLUSHED. ANTIBOTIC GIVEN. NO GENRERALIZED PAIN. PLAN OF CARE DISCUSSED. CALL LIGHT WI REACH. NEEDS MET.
[2021-02-13 03:55] VITALS: BP 130/62; PULSE 74; TEMP 98.4
--- NOTE | 2021-02-13 06:05 | NUR ---
RESTED THOUGH THE NIGHT WITHOUT INCIDENT. NEEDS MET.
--- NOTE | 2021-02-13 06:30 | NUR ---
Report recieved from EMELY Velazquez. Patient is sleeping in bed. Call light and bedside table are with reach. Will continue to monitor patient throughout shift.
--- NOTE | 2021-02-13 16:11 | NUR ---
An exercise ox was ordered. The patient qualified for 2 liters of oxygen. FELIPE contacted and emailed and faxed the FWW and oxygen order to Rubia at [facility]. FELIPE requested that they deliver the equipment to the patient's room tomorrow.
[2021-02-13 19:01] VITALS: BP 119/79; PULSE 107; TEMP 98.2
--- NOTE | 2021-02-13 21:00 | NUR ---
PT RESTING IN BED WATCHING TV. A&O X4.O2 2L NC. O2 SAT 93%. NO RESP DISTRESS. REMIANS IN ISOLATION. PT MOD I IN ROOM. ENC SAFETY. CALL LIGHT IN REACH.
[2021-02-14 06:21] VITALS: BP 128/72; PULSE 73; TEMP 97.8
--- NOTE | 2021-02-14 08:51 | NUR ---
PATIENT IS ALERT AND ORIENTED X4. HAS EATEN ALL OF BREAKFAST. PATIENT HAS INT IV TO RIGHT HAND. PATIENT IS ON 2L NC. PATIENT IS ON GENERAL DIET. PATIENT DENIES PAIN OR FURTHER NEEDS AT THIS TIME. PATIENT STATES HE IS "READY TO GO HOME". CALL LIGHT WITHIN REACH. HEAD TO TOE ASSESSMENT COMPLETE.
[2021-02-14] MEDS ORDERED: OXYGEN (10:08)
--- NOTE | 2021-02-14 11:04 | NUR ---
ROSALVA delivered the FWW and oxygen to the patient's room. The patient's RN notified FELIPE that the patient is interested in getting a Disabled Parking Placard. FELIPE staffed with the hospitalist and obtained the signed Certification of Disability for Disabled Parking Placard. FELIPE provided the form to the patient's RN and updated the patient. The patient is to discharge back home today, 02/14, with home health services for penitentiary/PT/OT from [facility]. FELIPE notified and faxed d/c orders to Suzie at [facility]. No additional needs at this time.
--- NOTE | 2021-02-14 12:43 | NUR ---
PATIENT IV D/C'D. SON UP TO ROOM TO HELP TAKE STUFF OUT. PATIENT PUT ON HOME O2. PATIENT TAKEN DOWN BY WHEELCHAIR AND DISCHARGED HOME WITH FAMILY.
== END 2021-02-14 12:30 | disposition home health service (06) | DRG 91 ==
PROVIDERS: Nurse Practitioner Family; Physician Assistant; ADMIT Internal Medicine
DX: G72.81 Critical illness myopathy (principal); J96.01 Acute respiratory failure with hypoxia; J12.82 Pneumonia due to coronavirus disease 2019; G93.41 Metabolic encephalopathy; J16.8 Pneumonia due to other specified infectious organisms; E44.0 Moderate protein-calorie malnutrition; E87.1 Hypo-osmolality and hyponatremia; Z66 Do not resuscitate; R78.81 Bacteremia; E87.0 Hyperosmolality and hypernatremia; N40.0 Benign prostatic hyperplasia without lower urinary tract symptoms; R74.01 Elevation of levels of liver transaminase levels; E66.9 Obesity, unspecified; D72.829 Elevated white blood cell count, unspecified; R53.81 Other malaise; U09.9 Post COVID-19 condition, unspecified; B96.1 Klebsiella pneumoniae [K. pneumoniae] as the cause of diseases classified elsewhere; R00.0 Tachycardia, unspecified; E87.6 Hypokalemia; Z68.33 Body mass index [BMI] 33.0-33.9, adult; J30.2 Other seasonal allergic rhinitis; M10.031 Idiopathic gout, right wrist; R19.7 Diarrhea, unspecified
CPT/HCPCS: 99222-AI; 99231-AI; 99232-AI; 99233-AI; 99239; A9284; J0692; J0696; J1170; J1652; J1885; J3370; J7040; Q9967

== ENCOUNTER → 2021-10-07 | Outpatient (CLI) | payer OTHER ==
[~2021-10-07] MED LIST changes: +ARIXTRA SQ; +CLARITIN 1010 MG/TAB PO; +FLOMAX 0.40.4 MG/CAP PO; +FLONASE NASAL S16 GM NS; +IPRATROPIUM BROM3 M1 IH; +OXYGEN; +PROAIR HFA0.09 MG/AC IH; +ROBITUSSIN DM 105 ML PO; +TYLENOL 325MG325 MG PO; +ZYPREXA 5MG5 MG PO; +ZYPREXA2.5 MG PO
== END ==
LOC: COL.VAS 14:43
DX: I35.1 Nonrheumatic aortic (valve) insufficiency (principal); I27.20 Pulmonary hypertension, unspecified; I51.7 Cardiomegaly